=== PATIENT | male | born 1960 | race Two or more races ===

== ENCOUNTER 2018-08-27 14:28 | Inpatient (IN) | payer MEDICAID ==
[~2018-08-27] VITALS: Ht 167.6 cm; Wt 69.4 kg
[2018-08-27 14:45] VITALS: BP 145/97
--- NOTE | 2018-08-27 14:49 | NUR ---
PT WHEEL CHAIR ASSISTED BACK TO THE LOBBY BY HIS NURSE EXAMINER
--- NOTE | 2018-08-27 15:03 | NUR ---
PT NOTED WHEELING HIMSELF IN THE LOBBY WITHOUT DIFFICULTY OR ACUTE DISTRESS
--- NOTE | 2018-08-27 15:15 | NUR ---
BIB CAREGIVER WITH C/O PERSISTENT COUGH AND SOB X 1 WEEK. PER CAREGIVER, PT ON 4TH DOSE OX ZPAK FOR URI BUT SYMPTOMS ARE PERSISTENT. DENIES FEVER/CHILLS. LUNGS CTAB, RESPIRATIONS EVEN AND UNLABORED. DENIES N/V/D. PT ARRIVED ON WHEELCHAIR. REPORTS HISTORY OF PSYCHOSIS, CEREBRAL PALSY
--- NOTE | 2018-08-27 15:15 | NUR ---
PT TO ER BED 4
[2018-08-27] MEDS ORDERED: NACL 0.9% 1,000 ML IV SCH (15:58)
--- NOTE | 2018-08-27 16:02 | NUR ---
XRAY AT BEDSIDE
--- NOTE | 2018-08-27 16:08 | NUR ---
RT AT BEDSIDE
[2018-08-27 16:30] LABS: BASOPHILS # (AUTO) 0.1 K/uL (0.00-0.22); BASOPHILS % (AUTO) 1.1 % (0.0-2.0); EOSINOPHILS # (AUTO) 0.2 K/uL (0-0.4); EOSINOPHILS % (AUTO) 2.7 % (0.0-4.0); HEMOGLOBIN 13.5 g/dL (12.0-18.0); LYMPHOCYTES # (AUTO) 2.3 K/uL (2.0-11.5); MEAN CORPUSCULAR HEMOGLOBIN 33 pg (27-31); MEAN CORPUSCULAR HGB CONC 34 g/dL (33-37); MEAN CORPUSCULAR VOLUME 96.9 fL (80-94); MONOCYTES # (AUTO) 0.8 K/uL (0.8-1.0); NEUTROPHILS % (AUTO) 48.2 % (42.2-75.2); PLATELET COUNT (AUTO) 272 K/uL (140-450); RED BLOOD CELL COUNT(AUTO) 4.13 MIL/uL (4.20-6.10); RED CELL DISTRIBUTION WIDTH 13.3 % (11.6-13.7); WHITE BLOOD COUNT (AUTO) 6.3 K/uL (4.8-10.8)
--- NOTE | 2018-08-27 16:32 | NUR ---
IN AND OUT CATH PER MD ORDERS, OBTAINSED CLEAR YELLOW URINE. SENT TO LAB. PT RITIKA PROCEDURE
[2018-08-27 16:47] LABS: ANION GAP 12.8 (8-16); CARBON DIOXIDE 29.3 mmol/L (21-32); CREATININE 0.7 mg/dL (0.7-1.3); POTASSIUM 4.1 mmol/L (3.5-5.1)
[2018-08-27 16:52] LABS: ALBUMIN 3.2 g/dL (3.4-5.0); TOTAL BILIRUBIN 0.3 mg/dL (0.0-1.0)
[2018-08-27] MEDS ORDERED: AZITHROMYCIN 500 MG in DEXTROSE 5% 250 ML IV ONE (16:55)
[2018-08-27] MEDS ORDERED: AZITHROMYCIN 500 MG in DEXTROSE 5% 250 ML IV SCH (17:00)
[2018-08-27 17:04] LABS: APPEARANCE,URINE CLEAR (CLEAR); BILIRUBIN,URINE NEGATIVE (NEGATIVE); BLOOD, URINE 3+ (NEGATIVE); COLOR,URINE YELLOW (YELLOW); LEUKOCYTE ESTERASE ,URINE NEGATIVE (NEGATIVE); NITRITE, URINE NEGATIVE (NEGATIVE); PH,URINE 7.5 (5.0-9.0); UGLUCOSE NEGATIVE (NEGATIVE)
[2018-08-27] MEDS ORDERED: cefTRIAXone 1,000 MG VIAL ONE ×2 (17:16→20:43)
[2018-08-27] MEDS ORDERED: AZITHROMYCIN 500 MG INJ VIAL IV ONE (17:17)
[2018-08-27 17:22] LABS: RBC,URINE 11-20 (MOD) /HPF (0-5); WBC,URINE 0-5 /HPF (0-5)
--- NOTE | 2018-08-27 17:40 | NUR ---
Patient will be admitted to care of [facility]. Admited to MS. Will go to room 119A. Belongings list completed. Report to ZAFAR HALL.
--- NOTE | 2018-08-27 17:45 | NUR ---
RECEIVED REPORT FROM ER NURSE AT BEDSIDE. PT CC SOB, COUGHING GFOR 1 WK . HAS THE DX OF HYPOXEMIA AND POSSIBLE PNA. PT IS DEVELOPMENTALLY DELAYED, HAS THE CAREGIVER AT THE BEDSIDE. VS RECORDED T 978.2, O2 SAT 98%V ON RA. BP 154/90, HR 70 AND RR 18. STARTED AZITHROMYCIN ON PT. IVF STARTED. NO SIGN OF DISTRESS NOTED. BED ALARM ON . ALL SAFETY MEASURE IN PLACE. WILL CONTINUE TO MONITOR PT.
[2018-08-27] MEDS ORDERED: BISA5ECT43 RC (17:49)
[2018-08-27] MEDS ORDERED: [UNRECOGNIZED DRUG - OTHER] PO (17:49)
[2018-08-27] MEDS ORDERED: LORA10TA19 PO (17:49)
[2018-08-27] MEDS ORDERED: CARB15DR52 OT (17:49)
[2018-08-27] MEDS ORDERED: [UNRECOGNIZED DRUG - CODE] PO (17:49)
[2018-08-27] MEDS ORDERED: RISP0.251 PO (17:49)
[2018-08-27] MEDS ORDERED: MAGN400S60 PO (17:49)
[2018-08-27] MEDS ORDERED: CHLO1TAB42 PO (17:49)
[2018-08-27] MEDS ORDERED: ACETAMINOPHEN PO (17:49)
[2018-08-27] MEDS ORDERED: POLY15SO48 OP (17:49)
[2018-08-27] MEDS ORDERED: DOCU-299 PO (17:49)
[2018-08-27] MEDS ORDERED: [UNRECOGNIZED DRUG - OTHER] TOP (17:49)
[2018-08-27] MEDS ORDERED: NA P133N1 RC (17:49)
[2018-08-27] MEDS ORDERED: ACETAMINOPHEN 325 MG TAB PO PRN (17:55)
[2018-08-27] MEDS ORDERED: ONDANSETRON 4 MG/2 ML VIAL IM/IVP PRN (17:55)
[2018-08-27] MEDS ORDERED: MORPHINE SULFATE 2 MG/ML SYR IVP PRN (17:55)
[2018-08-27] MEDS: NACL 0.9% 1,000 ML IV SCH (18:19)
[2018-08-27 18:39] LABS: MAGNESIUM 2.1 mg/dL (1.8-2.4); PHOSPHORUS 3.7 mg/dL (2.5-4.9); THYROID STIMULATING HORMONE 1.41 uIU/mL (0.34-3.74)
--- NOTE | 2018-08-27 19:15 | NUR ---
ENDORSED PT TO PM NURSE AT BEDSIDE. PT IN STABLE CONDITION.
--- NOTE | 2018-08-27 19:16 | NUR ---
RECEIVED REPORT FROM DAY SHIFT NURSE SITAL-RN AT BEDSIDE. CAREGIVER AT BEDSIDE. PT AOX1- NON-VERBAL, ON ROOM AIR WITH LEFT AC #18G. CONTRACTURES BLE, ABRASION ON BRIDGE OF NOSE AND SCALP. DISCUSSED PLAN OF CARE WITH CAREGIVER AND VERBALIZED UNDERSTANDING. MRSA NASAL SWAB COLLECTED BY DAY SHIFT NURSE SITAL-RN. NO S/S OF RESPIRATORY DISTRESS OR DISCOMFORT NOTED AT THIS TIME. BED IN LOWEST POSITION, BED BREAKS ON, BOTH SIDE RAILS UP AND BOTH FALL AND ASPIRATION PRECAUTIONS ARE IN PLACE. BED SIDE TABLE AND CALL LIGHT ARE WITHIN REACH. WILL CONTINUE TO MONITOR.
[2018-08-27] MEDS ORDERED: guaiFENesin 20 MG/ML UDC PO PRN (19:25)
[2018-08-27] MEDS ORDERED: BISACODYL 10 MG SUPP RC PRN (19:25)
[2018-08-27] MEDS ORDERED: SODIUM PHOSPHATE 118 ML ENEM RC PRN (19:25)
[2018-08-27] MEDS ORDERED: MAGNESIUM HYDROXIDE 2400 MG/30 ML UDC PO PRN (19:25)
[2018-08-27 20:00] VITALS: BP 151/93
--- NOTE | 2018-08-27 20:00 | NUR ---
VITAL SIGNS TAKEN AND TOLERATED WELL. NO S/S OF RESPIRATORY DISTRESS OR DISCOMFORT NOTED AT THIS TIME. WILL CONTINUE TO MONITOR.
[2018-08-27] MEDS ORDERED: CARBAMIDE PEROXIDE OT SCH (21:00)
[2018-08-27] MEDS ORDERED: POLYVINYL ALCOHOL 1.4% OP 15 ML SOL OP SCH (21:00)
[2018-08-27] MEDS: DOCUSATE SODIUM 250 MG GELCAP PO SCH (21:07)
[2018-08-27] MEDS: risperiDONE 1 MG TAB PO SCH (21:08)
--- NOTE | 2018-08-27 21:08 | NUR ---
VITAL SIGNS TAKEN AND TOLERATED WELL. NO S/S OF RESPIRATORY DISTRESS OR DISCOMFORT NOTED AT THIS TIME. WILL CONTINUE TO MONITOR.
--- NOTE | 2018-08-27 23:00 | NUR ---
PT RESTING IN BED. NO S/S OF RESPIRATORY DISTRESS OR DISCOMFORT NOTED AT THIS TIME. WILL CONTINUE TO MONITOR.
[2018-08-28] VITALS: BP 152/90
--- NOTE | 2018-08-28 | NUR ---
VITAL SIGNS TAKEN AND TOLERATED WELL. NO S/S OF RESPIRATORY DISTRESS OR DISCOMFORT NOTED AT THIS TIME. WILL CONTINUE TO MONITOR.
--- NOTE | 2018-08-28 02:00 | NUR ---
PT SLEEPING IN BED. NO S/S OF RESPIRATORY DISTRESS OR DISCOMFORT NOTED AT THIS TIME. WILL CONTINUE TO MONITOR.
--- NOTE | 2018-08-28 04:00 | NUR ---
PT RESTING IN BED. NO S/S OF RESPIRATORY DISTRESS OR DISCOMFORT NOTED AT THIS TIME. WILL CONTINUE TO MONITOR.
--- NOTE | 2018-08-28 04:19 | NUR ---
PT LEFT UNIT FOR CT SCAN. NO S/S OF RESPIRATORY DISTRESS OR DISCOMFORT NOTED AT THIS TIME. WILL CONTINUE TO MONITOR.
[2018-08-28] MEDS ORDERED: LORazepam 2 MG/ML VIAL IVP SCH (04:45)
--- NOTE | 2018-08-28 06:00 | NUR ---
PT RESTING IN BED. NO S/S OF RESPIRATORY DISTRESS OR DISCOMFORT NOTED AT THIS TIME. WILL CONTINUE TO MONITOR.
[2018-08-28 06:21] LABS: BASOPHILS # (AUTO) 0.1 K/uL (0.00-0.22); BASOPHILS % (AUTO) 1.1 % (0.0-2.0); EOSINOPHILS # (AUTO) 0.1 K/uL (0-0.4); EOSINOPHILS % (AUTO) 0.8 % (0.0-4.0); HEMATOCRIT 41.1 % (36-52); HEMOGLOBIN 14.1 g/dL (12.0-18.0); LYMPHOCYTES # (AUTO) 1.4 K/uL (2.0-11.5); LYMPHOCYTES % (AUTO) 18.1 % (20.5-51.1); MEAN CORPUSCULAR HEMOGLOBIN 33 pg (27-31); MEAN CORPUSCULAR HGB CONC 34 g/dL (33-37); MEAN CORPUSCULAR VOLUME 96.2 fL (80-94); MONOCYTES # (AUTO) 0.5 K/uL (0.8-1.0); NEUTROPHILS # (AUTO) 5.5 K/uL (1.8-7.7); PLATELET COUNT (AUTO) 284 K/uL (140-450); RED BLOOD CELL COUNT(AUTO) 4.27 MIL/uL (4.20-6.10); RED CELL DISTRIBUTION WIDTH 13.1 % (11.6-13.7); WHITE BLOOD COUNT (AUTO) 7.6 K/uL (4.8-10.8)
[2018-08-28 06:31] LABS: ANION GAP 12.8 (8-16); CREATININE 0.7 mg/dL (0.7-1.3); POTASSIUM 3.8 mmol/L (3.5-5.1)
[2018-08-28 06:47] LABS: CHOL/HDL RATIO 2.8 (1-4.5)
--- NOTE | 2018-08-28 07:20 | NUR ---
RECEIVED PT REPORT FROM ART SPECIALIST NURSE AT BEDSIDE. PT IS AWAKE LYING IN BED, SHEETS OFF, AND LEGS CONTRACTED UP TO THE CHEST. PER NIGHT NURSE, PT DOES NOT LIKE TO BE COVERED AND ALWAYS REMOVES HIS SHEETS. PT IS A&O X 0, AND NONVERBAL. INCONTINENT OF BOTH. PT IS ON ROOM AIR, SKIN INTACT. IV SITE NOTED ON THE LAC, 18 G, INFUSING NS 60 ML/HR. SMALL ABRASION NOTED ON THE PT'S NOSE FROM HIS FALL FROM WHEELCHAIR ON . FALL PRECAUTIONS IN PLACE, CALL LIGHT IS WITHIN REACH. WILL CONTINUE TO MONITOR.
--- NOTE | 2018-08-28 07:29 | NUR ---
ENDORSED PT CARE TO DAY SHIFT NURSE RONA FOR CONTINUITY OF CARE.
--- NOTE | 2018-08-28 07:59 | NUR ---
PT CLEANED, CHANGED AND REPOSITIONED IN BED.
[2018-08-28 08:00] VITALS: BP 130/81
--- NOTE | 2018-08-28 08:17 | NUR ---
PATIENT HAS BEEN SCREENED AND CATEGORIZED MODERATE NUTRITION RISK. PATIENT WILL BE SEEN WITHIN 3-5 DAYS OF ADMISSION. 08/29/18[address]
[2018-08-28] MEDS ORDERED: DOCUSATE SODIUM 100 MG GELCAP PO SCH (09:00)
[2018-08-28] MEDS: POLYVINYL ALCOHOL 1.4% OP 15 ML SOL OP SCH ×4 (10:03→21:47)
[2018-08-28] MEDS: DOCUSATE SODIUM 250 MG GELCAP PO SCH ×2 (10:04→21:48)
[2018-08-28] MEDS: LISINOPRIL 5 MG TAB PO SCH (10:04)
[2018-08-28] MEDS: LORATADINE 10 MG TAB PO SCH (10:04)
[2018-08-28] MEDS: risperiDONE 1 MG TAB PO SCH ×2 (10:05→21:48)
--- NOTE | 2018-08-28 10:16 | NUR ---
SCHEDULED AM MEDICINE ADMINISTERED WITH APPLE SAUCE, PT TOLERATED WELL. Addendum: 08/28/18 at 1023 by Shelley Perera RN PT KEEPS TAKING OFF HIS GOWN AND SHEETS
[2018-08-28] MEDS: NACL 0.9% 1,000 ML IV SCH (11:12)
--- NOTE | 2018-08-28 12:06 | NUR ---
PT'S IV SITE REINFORCED WITH TAPE AND GAUZE, PT PULLS ON HIS IV LINE. IV IS PATENT AND INTACT.
--- NOTE | 2018-08-28 12:18 | NUR ---
PT EATING LUNCH WITH ASSISTANCE FROM ROASTER OPERATOR.
[2018-08-28 15:55] VITALS: BP 132/74
--- NOTE | 2018-08-28 19:15 | NUR ---
Received endorsement from AM shift RN; patient laying in bed, awake. Patient A/Ox4, ambulatory, speaks Laoatian. No SOB or distress noted, on room air. IV site on right arm, 18 gauge, intact, running IVF. Skin intact. Bed in the lowest position, call light within reach. Initial assessment done. Will continue to monitor. Addendum: 08/28/18 at 1919 by Shay Mcgregor RN Addendum - charted on wrong patient.
--- NOTE | 2018-08-28 19:16 | NUR ---
Received endorsement from AM shift RN; patient is A/Ox0, unable to make needs known, bedbound and contracted lower extremities. No SOB or distress noted, on room air. IV site on left antecubital, 18 gauge, intact and wrapped in kerlix, IVF infusing. Skin intact. Bed in the lowest position, call light within reach. Initial assessment done. Will continue to monitor.
--- NOTE | 2018-08-28 19:25 | NUR ---
PT ENDORSED TO STUDENT SERVICES REPRESENTATIVE IN STABLE CONDITION.
--- NOTE | 2018-08-28 21:50 | NUR ---
Due meds given; given with apple sauce. No distress noted.
--- NOTE | 2018-08-28 22:15 | NUR ---
Patient cleaned, linens and chux changed, repositioned, tolerated well. No distress noted.
--- NOTE | 2018-08-28 22:20 | NUR ---
Patient removed gown and blanket. Re-applied, patient began to remove gown and blanket again. Will continue to monitor.
--- NOTE | 2018-08-28 23:57 | NUR ---
Vitals taken, patient is awake, laying in bed. No distress noted.
[2018-08-29] VITALS: BP 144/84
[2018-08-29] MEDS ORDERED: LORazepam 2 MG/ML VIAL IVP SCH (01:30)
--- NOTE | 2018-08-29 01:45 | NUR ---
Frequent checks made. Patient awake, no distress noted.
--- NOTE | 2018-08-29 01:52 | NUR ---
Made Dr. Winters aware patient is restless; orders made and carried out. Will continue to monitor.
[2018-08-29] MEDS: NACL 0.9% 1,000 ML IV SCH (02:14)
--- NOTE | 2018-08-29 02:18 | NUR ---
IVF replenished. No distress noted.
--- NOTE | 2018-08-29 04:16 | NUR ---
Rounds done. Patient asleep, visible chest rise and fall noted.
--- NOTE | 2018-08-29 05:30 | NUR ---
Patient is awake, sitting on bed. No distress noted.
--- NOTE | 2018-08-29 07:10 | NUR ---
Endorsed patient to AM shift RN; patient in stable condition.
--- NOTE | 2018-08-29 07:20 | NUR ---
RECEIVED PT REPORT FROM CELL INSPECTOR NURSE, PT IS AWAKE SITTING UP IN BED, NO S/S OF ACUTE DISTRESS OR SOB. PT ON ROOM AIR. IV ON THE LAC 18 GAUGE PATENT AND INTACT, INFUSING NS 60 ML/HR. PT STILL REMOVING HIS GOWN AND SHEETS. CALL LIGHT IS WITHIN REACH, CALL PRECAUTIONS IN PLACE. WILL CONTINUE TO MONITOR.
[2018-08-29 07:48] LABS: BASOPHILS # (AUTO) 0.1 K/uL (0.00-0.22); BASOPHILS % (AUTO) 1.2 % (0.0-2.0); EOSINOPHILS # (AUTO) 0.1 K/uL (0-0.4); EOSINOPHILS % (AUTO) 1.5 % (0.0-4.0); HEMATOCRIT 41.8 % (36-52); HEMOGLOBIN 14.3 g/dL (12.0-18.0); LYMPHOCYTES # (AUTO) 1.6 K/uL (2.0-11.5); LYMPHOCYTES % (AUTO) 27.7 % (20.5-51.1); MEAN CORPUSCULAR HEMOGLOBIN 33 pg (27-31); MEAN CORPUSCULAR HGB CONC 34 g/dL (33-37); MEAN CORPUSCULAR VOLUME 96.6 fL (80-94); MONOCYTES # (AUTO) 0.6 K/uL (0.8-1.0); NEUTROPHILS # (AUTO) 3.3 K/uL (1.8-7.7); NEUTROPHILS % (AUTO) 58.6 % (42.2-75.2); PLATELET COUNT (AUTO) 288 K/uL (140-450); RED BLOOD CELL COUNT(AUTO) 4.33 MIL/uL (4.20-6.10); RED CELL DISTRIBUTION WIDTH 13.2 % (11.6-13.7); WHITE BLOOD COUNT (AUTO) 5.7 K/uL (4.8-10.8)
[2018-08-29 07:55] LABS: ANION GAP 12.6 (8-16); CARBON DIOXIDE 27.1 mmol/L (21-32); CREATININE 0.7 mg/dL (0.7-1.3); POTASSIUM 3.7 mmol/L (3.5-5.1)
[2018-08-29 08:00] VITALS: BP 134/90
[2018-08-29] MEDS: LORATADINE 10 MG TAB PO SCH (09:47)
[2018-08-29] MEDS: LISINOPRIL 5 MG TAB PO SCH (09:47)
[2018-08-29] MEDS: DOCUSATE SODIUM 250 MG GELCAP PO SCH (09:47)
[2018-08-29] MEDS: risperiDONE 1 MG TAB PO SCH (09:47)
[2018-08-29] MEDS: POLYVINYL ALCOHOL 1.4% OP 15 ML SOL OP SCH (09:48)
[2018-08-29] MEDS ORDERED: LISI-424 PO (12:21)
--- NOTE | 2018-08-29 12:35 | NUR ---
CALLED FACILITY DIRECTOR AFTAB TO INFORM OF DISCHARGE, SHE WILL COME BAR PORTER PATIENT IN ABOUT 30MIN.
--- NOTE | 2018-08-29 13:05 | NUR ---
PT ASSISTED WITH CHANGING CLOTHES, ASSISTED UP TO WHEELCHAIR, PT AWAKE ALERT, RESP EVEN UNLABORED, NO ACUTE DISTRESS NOTED, AWAITING B/C FACILITY TO PICK HIM UP.
--- NOTE | 2018-08-29 13:25 | NUR ---
DICHARGE INSTRUCTIONS AND RX INFO GIVEN AND EXPLAINED TO PT'S B/C FACILITY DIRECTOR LATHA UGALDE DC AT THIS TIME IN WHEELCHAIR.
== END 2018-08-29 13:30 | disposition home or self-care (01) | DRG 113 ==
LOC: MED 14:28 → MTU 17:03
PROVIDERS: ADMIT General Practice; ATTEND General Practice
DX: J06.9 Acute upper respiratory infection, unspecified (principal); J18.9 Pneumonia, unspecified organism; S09.90XA Unspecified injury of head, initial encounter; E44.1 Mild protein-calorie malnutrition; G80.9 Cerebral palsy, unspecified; R06.03 Acute respiratory distress; Z68.24 Body mass index [BMI] 24.0-24.9, adult; R31.9 Hematuria, unspecified; W18.39XA Other fall on same level, initial encounter; Y93.89 Activity, other specified; Y92.89 Other specified places as the place of occurrence of the external cause; Y99.8 Other external cause status; K59.09 Other constipation; F29 Unspecified psychosis not due to a substance or known physiological condition; R09.02 Hypoxemia; S00.93XA Contusion of unspecified part of head, initial encounter
CPT/HCPCS: 36415; 36600; 70450; 71045; 80048; 80053; 81001; 82803; 83036; 83605; 83690; 83735; 83880; 84100; 84443; 84484; 85025; 85610; 85730; 87040; 87081; 87086; 87804; 93005; 96361; 96365; 99285; C1758; J0456; J0696; J1644; J2060; J7030; J7060; Q0092

== ENCOUNTER 2019-01-20 12:14 | Emergency (ER) | payer MEDICAID ==
[~2019-01-20] VITALS: Ht 162.6 cm; Wt 68.0 kg
[~2019-01-20 12:14] MED LIST: ACETAMINOPHEN PO; BISA5ECT43 RC; CARB15DR52 OT; CHLO1TAB42 PO; DOCU-299 PO; LISI-424 PO; LORA10TA19 PO; MAGN400S60 PO; NA P133N1 RC; POLY15SO48 OP; RISP0.251 PO; [UNRECOGNIZED DRUG - CODE] PO; [UNRECOGNIZED DRUG - OTHER] PO; [UNRECOGNIZED DRUG - OTHER] TOP
[2019-01-20 12:30] VITALS: BP 128/81
--- NOTE | 2019-01-20 12:34 | NUR ---
PT WHEELED OUT TO LOBBY, ALIZAS.
--- NOTE | 2019-01-20 13:16 | NUR ---
PT WHEELED TO BED 11 AT THIS TIME.
--- NOTE | 2019-01-20 13:32 | NUR ---
PT BROUGHT IN BY CAREGIVER FOR FATIGUE AND NOT EATING SINCE YESTERDAY MORNING. THIS IS UNCOMMON FOR HIM. PT AWAKE AT NORMAL BASELINE PER CAREGIVER. NO N/V/D. TAKING IN LIQUIDS. ABDOMEN ROUND, SOFT, ACTIVE BOWEL SOUNDS X4. SKIN IS WARM, DRY, PINK. MEDHX: ID, CEREBRAL PALSY, ATYPICAL PSYCHOSIS, ANEMIA, ACNE, CONSTIPATION, RECURRING OTITIS MEDIA, LEFT CRYPT-ORCHIDISM, HEPATITIS
--- NOTE | 2019-01-20 13:32 | NUR ---
Note jn in EDM - 01/20/19 at 1502 by [email or web address] PT C/O FATIGUE AND NOT EATING SINCE YESTERDAY MORNING. THIS IS UNCOMMON FOR HIM. NO N/V/D. TAKING IN LIQUIDS. MEDHX: ID, CEREBRAL PALSY, ATYPICAL PSYCHOSIS, ANEMIA, ACNE, CONSTIPATION, RECURRING OTITIS MEDIA, LEFT CRYPT-ORCHIDISM, HEPATITIS
[2019-01-20] MEDS ORDERED: MIRABULK PO (13:39)
[2019-01-20] MEDS ORDERED: BISA5ECT43 RC (13:39)
--- NOTE | 2019-01-20 13:44 | NUR ---
DR JOHNSON AT BEDSIDE EVALUATING PT.
[2019-01-20] MEDS ORDERED: NACL 0.9% 1,000 ML IV ONE (14:02)
[2019-01-20 14:46] LABS: BASOPHILS # (AUTO) 0.1 K/uL (0.00-0.22); BASOPHILS % (AUTO) 0.5 % (0.0-2.0); EOSINOPHILS # (AUTO) 0.1 K/uL (0-0.4); EOSINOPHILS % (AUTO) 0.6 % (0.0-4.0); HEMATOCRIT 41.5 % (36-52); HEMOGLOBIN 14.3 g/dL (12.0-18.0); LYMPHOCYTES # (AUTO) 1.8 K/uL (2.0-11.5); LYMPHOCYTES % (AUTO) 17.6 % (20.5-51.1); MEAN CORPUSCULAR HEMOGLOBIN 33 pg (27-31); MEAN CORPUSCULAR HGB CONC 34 g/dL (33-37); MEAN CORPUSCULAR VOLUME 95.9 fL (80-94); MONOCYTES # (AUTO) 1.1 K/uL (0.8-1.0); MONOCYTES % (AUTO) 11.4 % (1.7-9.3); NEUTROPHILS % (AUTO) 69.9 % (42.2-75.2); PLATELET COUNT (AUTO) 262 K/uL (140-450); RED BLOOD CELL COUNT(AUTO) 4.33 MIL/uL (4.20-6.10); RED CELL DISTRIBUTION WIDTH 13.3 % (11.6-13.7)
--- NOTE | 2019-01-20 14:55 | NUR ---
PT WAS STRAIGHT CATHED WITH A 14 GHANAIAN 200CC YELLOW CLEAR URINE. SAMPLE COLLECTED AND SENT TO LAB. PT POSITIONED TO COMFORT
[2019-01-20 15:08] LABS: CARBON DIOXIDE 30.6 mmol/L (21-32); CREATININE 0.7 mg/dL (0.7-1.3); POTASSIUM 3.6 mmol/L (3.5-5.1)
[2019-01-20 15:09] LABS: PROTHROMBIN TIME 10.3 secs (10.8-13.4)
[2019-01-20 15:20] LABS: APPEARANCE,URINE CLEAR (CLEAR); BILIRUBIN,URINE NEGATIVE (NEGATIVE); BLOOD, URINE NEGATIVE (NEGATIVE); COLOR,URINE YELLOW (YELLOW); LEUKOCYTE ESTERASE ,URINE NEGATIVE (NEGATIVE); NITRITE, URINE NEGATIVE (NEGATIVE); UGLUCOSE NEGATIVE (NEGATIVE)
[2019-01-20 15:21] LABS: ALBUMIN 3.7 g/dL (3.4-5.0); TOTAL BILIRUBIN 0.9 mg/dL (0.0-1.0)
--- NOTE | 2019-01-20 16:06 | NUR ---
PT TOLERATED ORAL FLUIDS. PO CHALLENGE COMPLETED
--- NOTE | 2019-01-20 16:21 | NUR ---
PT HAD IV REMOVED WITH NO BLEEDING. HIS DIAPER WAS CHANGED AND HE WAS PLACED BACK IN WHEELCHAIR.
--- NOTE | 2019-01-20 16:22 | NUR ---
Patient discharged with v/s stable. Written and verbal after care instructions given and explained. Patient verbalized understanding. Wheel Chair Assisted with by caregiver. All questions addressed prior to discharge. Advised to follow up with PMD.
[2019-01-20 16:24] VITALS: BP 155/76
== END 2019-01-20 16:22 | disposition home or self-care (01) ==
LOC: MED 12:14
DX: R63.0 Anorexia (principal); Z79.899 Other long term (current) drug therapy
CPT/HCPCS: 36415; 71045; 80053; 81003; 83605; 83690; 83880; 84484; 85025; 85610; 87040; 87086; 93005; 99284; J7030; Q0092

== ENCOUNTER 2019-03-17 06:08 | Inpatient (IN) | payer MEDICAID ==
[~2019-03-17] VITALS: Ht 165.1 cm; Wt 67.1 kg
[~2019-03-17 06:08] MED LIST changes: +BISA-188 RC; -BISA5ECT43 RC; -CHLO1TAB42 PO; +MIRABULK PO
--- NOTE | 2019-03-17 06:08 | NUR ---
PT TOMA ALS. TAKEN TO BED 10
[2019-03-17] MEDS ORDERED: NACL 0.9% 500 ML IV SCH (06:09)
[2019-03-17 06:13] VITALS: BP 131/84
--- NOTE | 2019-03-17 06:15 | NUR ---
Dr. Silverio examining patient.
--- NOTE | 2019-03-17 06:15 | NUR ---
Respiratory Therapist at bedside
--- NOTE | 2019-03-17 06:20 | NUR ---
EKG PERFORMED AT BEDSIDE
--- NOTE | 2019-03-17 06:46 | NUR ---
X-Ray at bedside.
--- NOTE | 2019-03-17 06:46 | NUR ---
58 Y/O MALE BIB AMBULANCE. PRESENTS TO ED WITH CHIEF COMPLAINT OF DIFFICULTY BREATHING. [employer]OM[employer]ION[employer] SALES STATES, PT WAS HAVING DIFFICULTY BREATHING AT SNF. PT RECEIVED BREATHING TX ENROUTE. PT HAS AUDIBLE WHEEZING UPPER LOBES. PLACED ON 2L OXYGEN; SPO2 AT 98%. NO CHEST PAIN NOTED. HX OF CEREBRAL PALSY. ABLE TO FOLLOW SIMPLE COMMANDS; NONVERBAL. ERMD SEEN. WILL CONTINUE TO MONITOR.
[2019-03-17 06:47] LABS: BASOPHILS % (AUTO) 0.3 % (0.0-2.0); HEMATOCRIT 42.3 % (36-52); HEMOGLOBIN 14.4 g/dL (12.0-18.0); LYMPHOCYTES # (AUTO) 0.6 K/uL (2.0-11.5); LYMPHOCYTES % (AUTO) 5.1 % (20.5-51.1); MEAN CORPUSCULAR HEMOGLOBIN 33 pg (27-31); MEAN CORPUSCULAR HGB CONC 34 g/dL (33-37); MEAN CORPUSCULAR VOLUME 97.8 fL (80-94); MONOCYTES # (AUTO) 0.8 K/uL (0.8-1.0); MONOCYTES % (AUTO) 6.3 % (1.7-9.3); NEUTROPHILS # (AUTO) 10.8 K/uL (1.8-7.7); NEUTROPHILS % (AUTO) 88.3 % (42.2-75.2); PLATELET COUNT (AUTO) 237 K/uL (140-450); RED BLOOD CELL COUNT(AUTO) 4.32 MIL/uL (4.20-6.10); RED CELL DISTRIBUTION WIDTH 13.4 % (11.6-13.7); WHITE BLOOD COUNT (AUTO) 12.3 K/uL (4.8-10.8)
--- NOTE | 2019-03-17 06:51 | NUR ---
ARMORING MACHINE OPERATOR AT BEDSIDE
[2019-03-17 06:59] LABS: ANION GAP 11.9 (8-16); CARBON DIOXIDE 26.9 mmol/L (21-32); CREATININE 0.7 mg/dL (0.7-1.3); POTASSIUM 3.8 mmol/L (3.5-5.1)
--- NOTE | 2019-03-17 07:00 | NUR ---
STRAIGHT CATH PERFORMED USING STERILE TECHNIQUE, 100 CC DARK YELLOW CLEAR URINE NOTED, SAMPLE COLLECTED AND SENT TO LAB.
[2019-03-17 07:06] LABS: ALBUMIN 3.3 g/dL (3.4-5.0); TOTAL BILIRUBIN 7.4 mg/dL (0.0-1.0)
--- NOTE | 2019-03-17 07:12 | NUR ---
REPORT RECEIVED FROM LATHA VALLES RESTING IN BED WITH RESPRESENTATIVE FROM [facility] AT BEDSIDE
[2019-03-17] MEDS ORDERED: PIPERACILLIN/TAZOBACTAM 3.375 GM in DEXTROSE 5% 50 ML IV ONE (07:15)
[2019-03-17] MEDS ORDERED: VANCOMYCIN 1,000 MG in DEXTROSE 5% 250 ML IV ONE (07:15)
[2019-03-17] MEDS ORDERED: PIPERACILLIN/TAZOBACTAM 3.375 GM VIAL IV ONE ×2 (07:17→21:13)
[2019-03-17] MEDS ORDERED: VANCOMYCIN 1,000 MG VIAL ONE (07:17)
--- NOTE | 2019-03-17 07:22 | NUR ---
DR DELGADO AT BEDSIDE
[2019-03-17 07:28] LABS: PROTHROMBIN TIME 10.8 secs (10.8-13.4)
[2019-03-17] MEDS ORDERED: NACL 0.9% 1,000 ML IV ONE (07:30)
--- NOTE | 2019-03-17 07:42 | NUR ---
URINE WALKED OVER TO LAB
[2019-03-17 07:54] LABS: APPEARANCE,URINE CLOUDY (CLEAR); BILIRUBIN,URINE 3+ (NEGATIVE); BLOOD, URINE 3+ (NEGATIVE); COLOR,URINE BROWN (YELLOW); LEUKOCYTE ESTERASE ,URINE NEGATIVE (NEGATIVE); NITRITE, URINE NEGATIVE (NEGATIVE); UGLUCOSE NEGATIVE (NEGATIVE)
--- NOTE | 2019-03-17 07:58 | NUR ---
LAB AT BEDSIDE.
[2019-03-17] MEDS ORDERED: LISI5TAB18 PO (08:03)
[2019-03-17] MEDS ORDERED: DEXT1DRO4 OP (08:10)
[2019-03-17] MEDS ORDERED: CARB15DR52 OT (08:10)
[2019-03-17] MEDS ORDERED: NA P133N16 RC (08:10)
[2019-03-17] MEDS ORDERED: [UNRECOGNIZED DRUG - CODE] PO (08:10)
--- NOTE | 2019-03-17 08:31 | NUR ---
ULTRASOUND AT BEDSIDE.
[2019-03-17 08:38] LABS: WBC,URINE 0-5 /HPF (0-5)
--- NOTE | 2019-03-17 09:36 | NUR ---
PT LAYING COMFORTABLY IN GURNEY, NO GRIMACING, NO DISTRESS NOTED. VSS.
--- NOTE | 2019-03-17 09:44 | NUR ---
RESDIENT SPEAKING TO SHIP SCALER FROM [facility] AT BEDSIDE.
[2019-03-17] MEDS: NACL 0.9% 1,000 ML IV SCH ×2 (09:56→22:26)
[2019-03-17] MEDS ORDERED: HYDROcodone/APAP 5/325 MG 1 TAB TAB PO PRN (10:00)
[2019-03-17] MEDS ORDERED: SODIUM PHOSPHATE 118 ML ENEM RC SCH ×2 (10:00→18:09)
[2019-03-17] MEDS ORDERED: MAGNESIUM HYDROXIDE 2400 MG/30 ML UDC PO PRN (10:00)
[2019-03-17] MEDS ORDERED: DOCUSATE SODIUM 100 MG GELCAP PO PRN (10:00)
[2019-03-17] MEDS ORDERED: MORPHINE SULFATE 2 MG/ML SYR IVP PRN (10:00)
[2019-03-17] MEDS ORDERED: ACETAMINOPHEN 325 MG TAB PO PRN (10:00)
[2019-03-17] MEDS ORDERED: ONDANSETRON 4 MG/2 ML VIAL IM/IVP PRN (10:00)
--- NOTE | 2019-03-17 10:25 | NUR ---
Patient will be admitted to care of [facility]. Admited to TELE. Will go to [facility]B. Belongings list completed. Report to ISABEL SEWELL.
--- NOTE | 2019-03-17 10:25 | NUR ---
RECEIVED REPORT FROM LAB SUPPORT SERVICE TECH. PATIENT CAME TO FLOOR ON NASAL CANNULA 2.5L, PATIENT IS FULL CODE, NKA AND NONVERBAL. PATIENT FOLLOWS COMMANDS, SKIN INTACT. IV IS PLACED AT LEFT HAND 20G. PATIENT HAS A REPLENISHMENT BUYER WHO CAME WITH HIM AND IS CURRENTLY AT BEDSIDE, PHONE NUMBER IS [phone]
[2019-03-17 11:00] LABS: BARBITURATE, URINE NEG. ng/ml (NEG <=200); BENZODIAZEPINE, URINE NEG. ng/mL (NEG <=200); CANNABINOID, URINE NEG. ng/mL (NEG <=50); COCAINE, URINE NEG. ng/mL (NEG <=300); OPIATE, URINE NEG. ng/mL (NEG <=2000); PHENCYCLIDINE SCREEN,URINE NEG. ng/mL (NEG <=25)
[2019-03-17 11:12] LABS: PHOSPHORUS 3.1 mg/dL (2.5-4.9); THYROID STIMULATING HORMONE 0.48 uIU/mL (0.34-3.74)
[2019-03-17 12:00] VITALS: BP 143/87
[2019-03-17] MEDS ORDERED: guaiFENesin 20 MG/ML UDC PO PRN (12:00)
--- NOTE | 2019-03-17 12:20 | NUR ---
PATIENT SITTING UP IN BED. CAREGIVER AT BEDSIDE. CAREGIVER ATTEMPTED TO FEED PATIENT BUT STATED PATIENT REFUSED AND HE RARELY EVER REFUSES.
[2019-03-17 16:00] VITALS: BP 140/77
--- NOTE | 2019-03-17 17:00 | NUR ---
NEW CAREGIVER FROM PATIENTS FACILITY IS AT BEDSIDE. PATIENT IS RESTING QUIETLY IN BED. NO COMPLAINTS AT THIS TIME.
--- NOTE | 2019-03-17 19:25 | NUR ---
RECIEVED PT ON BED , NO VERBAL , MENTALLY DELAYED , NID , ON O2 AT 2LPM , WITH MARKED SKIN JAUNDICE - NO SIGNS OF PAIN NOTED AT THIS TIME FLACC 0 , IV SITE INTACT AND PATENT , FALL RISK - ON SAFETY/FALL PRECAUTION PROTOCOL - BED ALARM ON . PLAN OF CARE DISCUSSED BUT POOR UNDERSTANDING DUE TO MENTAL STATUS . WILL CONT. TO MONITOR, ON NPO POST MN.
[2019-03-17 20:00] VITALS: BP 133/70
[2019-03-17] MEDS: PIPERACILLIN/TAZOBACTAM 3.375 GM in DEXTROSE 5% 50 ML IV SCH (21:17)
[2019-03-17] MEDS: risperiDONE 1 MG TAB PO SCH (21:18)
[2019-03-17] MEDS: DOCUSATE SODIUM 250 MG GELCAP PO SCH (21:18)
--- NOTE | 2019-03-17 22:00 | NUR ---
MADE ROUNDS . NO SIGNS OF DISTRESS NOTED AT THIS TIME . WILL CONT. TO MONITOR.
[2019-03-18] VITALS: BP 110/60
--- NOTE | 2019-03-18 | NUR ---
MADE ROUNDS . NO SIGNS OF DISTRESS NOTED AT THIS TIME . WILL CONT. TO MONITOR.
--- NOTE | 2019-03-18 02:00 | NUR ---
MADE ROUNDS , NO SIGNS OF DISTRESS NOTED AT THIS TIME.
[2019-03-18 04:00] VITALS: BP 110/66
--- NOTE | 2019-03-18 04:00 | NUR ---
MADE ROUNDS NO SIGNS OF DISTRESS NOTED AT THIS TIME.
[2019-03-18] MEDS ORDERED: PIPERACILLIN/TAZOBACTAM 3.375 GM VIAL IV ONE (04:19)
[2019-03-18] MEDS: PIPERACILLIN/TAZOBACTAM 3.375 GM in DEXTROSE 5% 50 ML IV SCH ×2 (04:29→13:23)
[2019-03-18] MEDS: DEXT 5% / NACL 0.45% 1,000 ML IV SCH ×3 (05:45→22:30)
[2019-03-18] MEDS ORDERED: ALBUTEROL SULFATE/IPRATROPIU 3 ML SOL IH PRN (06:05)
[2019-03-18 06:28] LABS: BASOPHILS # (AUTO) 0.1 K/uL (0.00-0.22); BASOPHILS % (AUTO) 0.8 % (0.0-2.0); EOSINOPHILS # (AUTO) 0.1 K/uL (0-0.4); EOSINOPHILS % (AUTO) 1.5 % (0.0-4.0); HEMATOCRIT 38.1 % (36-52); HEMOGLOBIN 12.9 g/dL (12.0-18.0); LYMPHOCYTES # (AUTO) 1.1 K/uL (2.0-11.5); LYMPHOCYTES % (AUTO) 16.3 % (20.5-51.1); MEAN CORPUSCULAR HEMOGLOBIN 34 pg (27-31); MEAN CORPUSCULAR HGB CONC 34 g/dL (33-37); MEAN CORPUSCULAR VOLUME 98.8 fL (80-94); MONOCYTES # (AUTO) 0.7 K/uL (0.8-1.0); MONOCYTES % (AUTO) 10.8 % (1.7-9.3); NEUTROPHILS # (AUTO) 4.9 K/uL (1.8-7.7); NEUTROPHILS % (AUTO) 70.6 % (42.2-75.2); PLATELET COUNT (AUTO) 220 K/uL (140-450); RED BLOOD CELL COUNT(AUTO) 3.86 MIL/uL (4.20-6.10); RED CELL DISTRIBUTION WIDTH 13.7 % (11.6-13.7); WHITE BLOOD COUNT (AUTO) 6.9 K/uL (4.8-10.8)
[2019-03-18] MEDS ORDERED: AZITHROMYCIN 500 MG in DEXTROSE 5% 250 ML IV SCH (06:30)
[2019-03-18 06:36] LABS: CARBON DIOXIDE 26.6 mmol/L (21-32); CREATININE 0.6 mg/dL (0.7-1.3); POTASSIUM 3.6 mmol/L (3.5-5.1)
[2019-03-18] MEDS: ALBUTEROL SULFATE/IPRATROPIU 3 ML SOL IH SCH ×3 (06:41→19:45)
[2019-03-18] MEDS ORDERED: AZITHROMYCIN 500 MG INJ VIAL IV ONE (06:44)
[2019-03-18 06:59] LABS: ALBUMIN 2.9 g/dL (3.4-5.0); BILIRUBIN,DIRECT 6.7 mg/dL (0.0-0.3); CHOL/HDL RATIO 6.7 (1-4.5); PHOSPHORUS 2.2 mg/dL (2.5-4.9); TOTAL BILIRUBIN 8.3 mg/dL (0.0-1.0)
--- NOTE | 2019-03-18 07:30 | NUR ---
ENDORSED TO AM SHIFT WITH STABLE CONDITION.
--- NOTE | 2019-03-18 07:34 | NUR ---
RECEIVED REPORT FROM NIGHT RN. PT RESTING IN BED. NO S/S OF ACUTE DISTRESS. FLACC-0. PT NONVERBAL. IV SITE PATENT AND INTACT. CALL LIGHT WITHIN REACH. SAFETY MEASURES ENSURED. WILL CONTINUE TO MONITOR.
[2019-03-18 08:07] LABS: HEPATITIS A ANTIBODY IGM Negative (Negative); HEPATITIS B CORE AB TOTAL Negative (Negative); HEPATITIS B SURFACE ANTIBODY Reactive (.); HEPATITIS B SURFACE ANTIGEN Negative (Negative)
[2019-03-18] MEDS: LACTOBACILLUS RHAMNOSUS GG 1 EACH CAP PO SCH (08:16)
[2019-03-18] MEDS: DOCUSATE SODIUM 250 MG GELCAP PO SCH ×2 (08:16→22:05)
[2019-03-18] MEDS: POLYETHYLENE GLYCOL 17 GM/PKT PO SCH (08:16)
[2019-03-18] MEDS: LORATADINE 10 MG TAB PO SCH (08:16)
--- NOTE | 2019-03-18 08:27 | NUR ---
PATIENT HAS BEEN SCREENED AND CATEGORIZED HIGH NUTRITION RISK. PATIENT WILL BE SEEN WITHIN 1-2 DAYS OF ADMISSION. 03/18/[address]
[2019-03-18] MEDS: risperiDONE 1 MG TAB PO SCH ×2 (09:00→22:05)
[2019-03-18] MEDS: LISINOPRIL 20 MG TAB PO SCH (09:00)
[2019-03-18] MEDS: BISACODYL 10 MG SUPP RC SCH (09:10)
[2019-03-18] MEDS ORDERED: SODIUM PHOS / POTASSIUM PHOS 1 PKT PDR PO SCH (10:00)
--- NOTE | 2019-03-18 10:44 | NUR ---
*S.T. Note* order for S.T. bedside swallow eval received, chart reviewed. Spoke w/ ISABEL Medina, who confirmed that pt is NPO pending CT angio, but cleared clinician to give minimal amounts of P.O. trials for eval. Pt, however, non-cooperative, and refused all P.O. trials (apple sauce, juice via straw, cup and spoon, water, gelatin, crackers), pushing away or throwing P.O. trials to floor. Unable to complete eval at this time. Will reattempt tomorrow. Time [id number]
[2019-03-18 11:14] VITALS: BP 115/76
--- NOTE | 2019-03-18 12:07 | NUR ---
PT RESTING IN BED. NO S/S OF ACUTE DISTRESS. FLACC-0. IV SITE PATENT AND INTACT. CALL LIGHT WITHIN REACH. SAFETY MEASURES ENSURED. WILL CONTINUE TO MONITOR.
--- NOTE | 2019-03-18 13:54 | NUR ---
03/18/19 RD INITIAL ASSESSMENT COMPLETED PLEASE REFER TO NUTRITION ASSESSMENT UNDER CARE ACTIVITY FOR ESTIMATED NUTRITIONAL NEEDS. 1. CONTINUE NPO TOLERATED 2. ADVANCE DIET PER SWALLOW EVAL RECOMMENDATION. 3. RD TO FOLLOW-UP 2-3 DAYS, HIGH RISK TWIN VASQUEZ, RD
--- NOTE | 2019-03-18 15:05 | NUR ---
CONFIRMED WITH CT THAT THE STANDARD CONSENT FORM IS NEEDED FOR CT WITH CONTRAST. DR. JIMENEZ AWARE. ALEISHA ALSO AWARE. MESSAGE LEFT FOR JUDI FROM [facility].
--- NOTE | 2019-03-18 15:11 | NUR ---
SPOKE TO OSMAN AND KYAW REGARDING CONSENT NEEDING TO BE RESENT. PER KYAW WE WILL BE GETTING A CALL FROM [facility] FOR VERBAL CONSENT.
[2019-03-18 16:00] VITALS: BP 112/70
[2019-03-18] MEDS: LORazepam 2 MG/ML VIAL IM/IVP PRN (16:27)
--- NOTE | 2019-03-18 16:51 | NUR ---
PT RESTING IN BED. ATIVAN GIVEN FOR AGITATION, AWAITING RESPONSE. NO S/S OF ACUTE DISTRESS. FLACC-0. WILL CONTINUE TO MONITOR.
[2019-03-18] MEDS ORDERED: LORazepam 2 MG/ML VIAL IVP PRN (19:20)
--- NOTE | 2019-03-18 19:30 | NUR ---
RECEIVED BEDSIDE REPORT FROM AM SHIFT RN. PT IN BED AWAKE. PT IS NON-VERBAL, MENTALLY DELAYED. NO SIGNS OF RESPIRATORY DISTRESS OR SOB NOTED. IV ACCESS ON LEFT AC 20 GAUGE , PATENT, INTACT AND ASYMPTOMATIC INFUSING WELL. HEP LOCK ON LEFT HAND 20 GAUGE. PT ON FALL RISK BED IN LOW POSITION. PT ON CONTACT PRECAUTIONS FOR POSITIVE MRSA NARES. BOARD UPDATED. WILL CONTINUE TO MONITOR.
[2019-03-18 20:00] VITALS: BP 139/89
--- NOTE | 2019-03-18 22:00 | NUR ---
ROUNDS DONE. PT ASLEEP COMFORTABLY IN BED. NO SOB OR DISTRESS NOTED. VISIBLE CHEST RISE AND FALL NOTED. WILL CONTINUE TO MONITOR.
[2019-03-19] VITALS: BP 109/71
--- NOTE | 2019-03-19 | NUR ---
VITAL SIGNS TAKEN. PT STABLE AND ASLEEP. VISIBLE CHEST RISE AND FALL NOTED. WILL CONTINUE TO MONITOR.
--- NOTE | 2019-03-19 02:05 | NUR ---
ROUNDS DONE. PT SLEEPING COMFORTABLY. NO DISTRESS NOTED. VISIBLE CHEST RISE AND FALL NOTED. WILL CONTINUE TO MONITOR.
--- NOTE | 2019-03-19 04:05 | NUR ---
ROUNDS MADE. PT IN BED ASLEEP. NO SOB OR DISTRESS NOTED. VISIBLE CHEST RISE AND FALL NOTED. WILL CONTINUE TO MONITOR.
--- NOTE | 2019-03-19 05:00 | NUR ---
PT WENT OUT FOR CT SCAN OF ABDOMEN WITH CONTRAST VIA GURNEY.
--- NOTE | 2019-03-19 05:40 | NUR ---
PT RETURN FROM CT SCAN OF ABDOMEN VIA [facility]. PT STABLE.
[2019-03-19 06:34] LABS: ANION GAP 15.9 (8-16); CREATININE 0.5 mg/dL (0.7-1.3); POTASSIUM 3.9 mmol/L (3.5-5.1)
[2019-03-19 06:45] LABS: HEMATOCRIT 38.5 % (36-52); MEAN CORPUSCULAR HEMOGLOBIN 33 pg (27-31); MEAN CORPUSCULAR HGB CONC 34 g/dL (33-37); PLATELET COUNT (AUTO) 252 K/uL (140-450); RED BLOOD CELL COUNT(AUTO) 3.89 MIL/uL (4.20-6.10); RED CELL DISTRIBUTION WIDTH 13.9 % (11.6-13.7); WHITE BLOOD COUNT (AUTO) 6.4 K/uL (4.8-10.8)
[2019-03-19 06:47] LABS: BILIRUBIN,DIRECT 7.4 mg/dL (0.0-0.3); TOTAL BILIRUBIN 9.1 mg/dL (0.0-1.0)
[2019-03-19] MEDS: ALBUTEROL SULFATE/IPRATROPIU 3 ML SOL IH SCH ×3 (06:51→20:15)
--- NOTE | 2019-03-19 06:51 | NUR ---
PT KEEPS PULLING MASK OFF AND THROWING ON FLOOR STARTED TO BE COMBATIVE
--- NOTE | 2019-03-19 06:58 | NUR ---
PT IN STABLE CONDITION. WILL ENDORSE TO AM SHIFT NURSE FOR CONTINUITY OF CARE.
--- NOTE | 2019-03-19 07:24 | NUR ---
RECEIVED HAND OFF REPORT FROM PM RN PT APPEARS STABLE AND IN NO APPARENT DISTRESS. ALL SAFETY MEASURES ARE IN PLACE WILL CONTINUE TO MONITOR
[2019-03-19 07:25] LABS: EOSINOPHILS % (MANUAL) 2 % (0-4); MONOCYTES % (MANUAL) 12 % (5-12)
[2019-03-19 07:26] LABS: LYMPHOCYTES % (MANUAL) 23 % (20-46)
[2019-03-19 08:10] VITALS: BP 147/73
[2019-03-19] MEDS: risperiDONE 1 MG TAB PO SCH ×2 (09:00→21:00)
[2019-03-19] MEDS: LISINOPRIL 20 MG TAB PO SCH (09:00)
[2019-03-19] MEDS: POLYETHYLENE GLYCOL 17 GM/PKT PO SCH (09:00)
[2019-03-19] MEDS: LACTOBACILLUS RHAMNOSUS GG 1 EACH CAP PO SCH (09:00)
[2019-03-19] MEDS: BISACODYL 10 MG SUPP RC SCH (09:00)
[2019-03-19] MEDS: SENNA 8.6 MG TAB PO SCH (09:00)
[2019-03-19] MEDS: LORATADINE 10 MG TAB PO SCH (09:00)
[2019-03-19] MEDS: DOCUSATE SODIUM 250 MG GELCAP PO SCH ×2 (09:00→21:00)
--- NOTE | 2019-03-19 09:00 | NUR ---
RECEIVED A CALL FROM [facility] REGARDING A CONSENT FOR PT'S PROCEDURE , E MAILED THE CONSENT TO [facility] , WHICH SHE RECEIVED IT AND REFER IT TO THE COMMITTEE, ONCE IT IS DONE AND AGREED SHE WILL FAX THE CONSENT FORM BACK TO [facility]. CM TO FOLLOW
--- NOTE | 2019-03-19 09:35 | NUR ---
FREQUENT ROUNDING ON PT PT APPEARS STABLE AND IN NO APPARENT DISTRESS. ALL SAFETY MEASURES ARE IN PLACE WILL CONTINUE TO MONITOR.
--- NOTE | 2019-03-19 10:12 | NUR ---
CALLED FROM [facility] [phone] TO GET PHONE CONSENT. SHE STATED IT HAS ALREADY BEEN FAXED TO HER BY THE [employer] [employer] [employer] MANA[employer].PROVIDED OUR FAX NUMBER FOR THE PATIENT.
--- NOTE | 2019-03-19 10:33 | NUR ---
HELD MORNING MEDICATIONS PT IS TO BE KEPT NPO FOR PROCEDURE TODAY, HELD HEPARIN SUBQ PT IS SCHEDULED FOR ERCP WITH POSSIBLE LAP ANDREW TODAY
[2019-03-19] MEDS: AZITHROMYCIN 250 MG in DEXTROSE 5% 250 ML IV SCH (10:46)
[2019-03-19] MEDS: MUPIROCIN CA NASAL 2% 1GM TUBE NS SCH (10:47)
[2019-03-19] MEDS: CHLORHEXADINE GLUC 2% CLOTH TP SCH (10:47)
--- NOTE | 2019-03-19 11:04 | NUR ---
* ST PVE NOTE * Clinician attempting to complete second attempt at swallow evaluation at this time. Upon consulting with Adonay Whitfield, Adonay reporting pt to be kept NPO pending ERCP and possible lap vini. Clinician thus informing Adonay Whitfield another swallow evaluation attempt will be made tomorrow 03/20 pending pt's condition s/p procedure, w/nsg verbalizing understanding and agreement. PVE
--- NOTE | 2019-03-19 11:23 | NUR ---
FREQUENT ROUNDING ON PT PT APPEARS STABLE AND IN NO APPARENT DISTRESS. ALL SAFETY MEASURES ARE IN PLACE WILL CONTINUE TO MONITOR
--- NOTE | 2019-03-19 11:50 | NUR ---
SCREEN FOR LOW LILIAN SCALE AT RISK, CONTINUE TO FOLLOW PRESSURE ULCER PREVENTION INTERVENTIONS. -TURN AND REPOSITION PATIENT Q 2H -ASSESS AND MONITOR SKIN CONDITION DURING POSITION CHANGE -OFFLOAD BILATERAL HEELS BY PLACING PILLOWS UNDER CALVES AT ALL TIMES, UNLESS OTHERWISE CONTRAINDICATED -PRESSURE REDISTRIBUTION BY PLACING PILLOWS AND OFFLOADING SACRALCOCCYX -KEEP SKIN CLEAN AND DRY AT ALL TIMES.
--- NOTE | 2019-03-19 13:46 | NUR ---
FREQUENT ROUNDING ON PT PT APPEARS STABLE AND IN NO APPARENT DISTRESS. ALL SAFETY MEASURES ARE IN PLACE
[2019-03-19] MEDS: LORazepam 2 MG/ML VIAL IM/IVP PRN ×2 (14:19→23:21)
--- NOTE | 2019-03-19 15:00 | NUR ---
PT TAKEN OFF THE UNIT FOR HIDA SCAN
--- NOTE | 2019-03-19 15:28 | NUR ---
FREQUENT ROUNDING ON PT PT APPEARS STABLE AND IN NO APPARENT DISTRESS. ALL SAFETY MEASURES ARE IN PLACE WILL CONTINUE TO MONITOR Addendum: 03/19/19 at 1529 by Roseann Ye RN ERROR WRONG PT
[2019-03-19] MEDS ORDERED: MORPHINE SULFATE 2 MG/ML SYR IVP SCH (15:55)
--- NOTE | 2019-03-19 16:10 | NUR ---
pt still off unit for hida scan. went to nuclear medicine to administer 2mg morphine for hida scan protocol
--- NOTE | 2019-03-19 16:37 | NUR ---
RECEIVED CONSENT FROM PT FACILITY FOR ERCP AND LAP ANDREW PLACED IN CHART
--- NOTE | 2019-03-19 18:55 | NUR ---
unable to administer iv antibiotic pt is still off the unit. will endorse to pm sharan
--- NOTE | 2019-03-19 19:10 | NUR ---
RECEIVED BEDSIDE REPORT FROM DAY SHIFT NURSE. PATIENT IS OFF UNIT FOR HIDA SCAN. AWAITING FOR PATIENT ARRIVAL.
[2019-03-19] MEDS: DEXT 5% / NACL 0.45% 1,000 ML IV SCH (19:19)
--- NOTE | 2019-03-19 19:20 | NUR ---
ENDORSED PT TO PM RN PT OFF UNIT FOR HIDA SCAN.
--- NOTE | 2019-03-19 19:25 | NUR ---
PT ARRIVED BACK ON THE UNIT. ADMINISTERED 1800 IV ANTIBIOTIC. PT AWAKE IN BED PT APPEARS STABLE AND IN NO APPARENT DISTRESS. ALL SAFETY MEASURES IN PLACE. BED ALARM ON. PARTICIPANT ADMINISTRATOR AT BEDSIDE PROVIDING GLADYS CARE
--- NOTE | 2019-03-19 19:30 | NUR ---
PATIENT IS BACK ON THE UNIT. VITALS WERE TAKEN. ALL SAFETY MEASURES IN PLACE. BED IS AT LOW POSITION. CALL LIGHT WITHIN REACH. WILL CONTINUE TO MONITOR.
--- NOTE | 2019-03-19 20:00 | NUR ---
INITIAL ASSESSMENT DONE. VITALS WERE TAKEN. PATIENT IN STABLE CONDITION. NO DISTRESS NOTED. WILL CONTINUE TO MONITOR.
--- NOTE | 2019-03-19 21:00 | NUR ---
ALL SCHEDULED MEDS WERE GIVEN EXCEPT FOR PO MEDS. PATIENT STILL NPO. WILL CONTINUE TO MONITOR.
--- NOTE | 2019-03-19 22:30 | NUR ---
PATIENT PULLED HIS IV. NO ACTIVE BLEEDING NOTICE. CANNULA INTACT. INSERT NEW ONE TO THE RIGHT HAND 24G. WILL CONTINUE TO MONITOR.
--- NOTE | 2019-03-19 23:20 | NUR ---
PATIENT IS RESTLESS KEPT MOVING AROUND, KEPT PULLING IV LINE. PRN ATIVAN ADMINISTERED PER ORDER. WILL CONTINUE TO MONITOR.
[2019-03-20] VITALS: BP 146/90
--- NOTE | 2019-03-20 00:12 | NUR ---
VITALS WERE TAKEN. PATIENT IN STABLE CONDITION. NO DISTRESS NOTED. WILL CONTINUE TO MONITOR.
--- NOTE | 2019-03-20 02:24 | NUR ---
CHECKED ON PATIENT. PATIENT SLEEPING RESPIRATION EVEN UNLABORED ON ROOM AIR. NO DISTRESS NOTED. WILL CONTINUE TO MONITOR.
[2019-03-20 06:17] LABS: BASOPHILS # (AUTO) 0.1 K/uL (0.00-0.22); BASOPHILS % (AUTO) 1.2 % (0.0-2.0); EOSINOPHILS # (AUTO) 0.1 K/uL (0-0.4); EOSINOPHILS % (AUTO) 2.1 % (0.0-4.0); HEMOGLOBIN 13.4 g/dL (12.0-18.0); LYMPHOCYTES # (AUTO) 1.1 K/uL (2.0-11.5); LYMPHOCYTES % (AUTO) 21.2 % (20.5-51.1); MEAN CORPUSCULAR HEMOGLOBIN 33 pg (27-31); MEAN CORPUSCULAR HGB CONC 34 g/dL (33-37); MEAN CORPUSCULAR VOLUME 98.4 fL (80-94); MONOCYTES # (AUTO) 0.6 K/uL (0.8-1.0); MONOCYTES % (AUTO) 11.1 % (1.7-9.3); NEUTROPHILS # (AUTO) 3.4 K/uL (1.8-7.7); NEUTROPHILS % (AUTO) 64.4 % (42.2-75.2); PLATELET COUNT (AUTO) 271 K/uL (140-450); RED BLOOD CELL COUNT(AUTO) 4.06 MIL/uL (4.20-6.10); RED CELL DISTRIBUTION WIDTH 13.7 % (11.6-13.7); WHITE BLOOD COUNT (AUTO) 5.3 K/uL (4.8-10.8)
[2019-03-20 06:39] LABS: ANION GAP 12.9 (8-16); CARBON DIOXIDE 27.9 mmol/L (21-32); CREATININE 0.5 mg/dL (0.7-1.3); POTASSIUM 3.8 mmol/L (3.5-5.1)
[2019-03-20 06:53] LABS: MAGNESIUM 1.8 mg/dL (1.8-2.4)
[2019-03-20 06:54] LABS: BILIRUBIN,DIRECT 8.6 mg/dL (0.0-0.3); TOTAL BILIRUBIN 11.1 mg/dL (0.0-1.0)
[2019-03-20] MEDS: ALBUTEROL SULFATE/IPRATROPIU 3 ML SOL IH SCH ×3 (07:00→19:54)
[2019-03-20] MEDS: DEXT 5% / NACL 0.45% 1,000 ML IV SCH ×2 (07:45→21:47)
--- NOTE | 2019-03-20 07:55 | NUR ---
ENDORSED PATIENT TO DAY SHIFT NURSE. PATIENT IN STABLE CONDITION.
--- NOTE | 2019-03-20 07:59 | NUR ---
RECEIVED HAND OFF REPORT FROM PM RN PT APPEARS STABLE AND IN NO APPARENT DISTRESS. ALL SAFETY MEASURES ARE IN PLACE WILL CONTINUE TO MONITOR
[2019-03-20 08:15] VITALS: BP 136/85
[2019-03-20] MEDS: risperiDONE 1 MG TAB PO SCH ×3 (09:00→21:35)
[2019-03-20] MEDS: POLYETHYLENE GLYCOL 17 GM/PKT PO SCH (09:00)
[2019-03-20] MEDS: BISACODYL 10 MG SUPP RC SCH (09:00)
[2019-03-20] MEDS: LACTOBACILLUS RHAMNOSUS GG 1 EACH CAP PO SCH (09:00)
[2019-03-20] MEDS: LISINOPRIL 20 MG TAB PO SCH (09:00)
[2019-03-20] MEDS: SENNA 8.6 MG TAB PO SCH (09:00)
[2019-03-20] MEDS: DOCUSATE SODIUM 250 MG GELCAP PO SCH ×3 (09:00→21:35)
[2019-03-20] MEDS: LORATADINE 10 MG TAB PO SCH (09:00)
[2019-03-20] MEDS: MUPIROCIN CA NASAL 2% 1GM TUBE NS SCH (09:09)
[2019-03-20] MEDS: CHLORHEXADINE GLUC 2% CLOTH TP SCH (09:09)
--- NOTE | 2019-03-20 10:17 | NUR ---
attempted to give pt a coloring book and crayon. pt threw them on the floor
[2019-03-20] MEDS: AZITHROMYCIN 250 MG in DEXTROSE 5% 250 ML IV SCH (10:52)
--- NOTE | 2019-03-20 16:08 | NUR ---
PAGED PT ABOUT SWALLOW ORDER. SINCE PT HAS BEEN CHANGED FROM NPO TO MECHANICAL SOFT DIET
[2019-03-20 16:43] VITALS: BP 146/72
--- NOTE | 2019-03-20 19:29 | NUR ---
* ST NOTE * Pt seen at bedside. Pt alert and cooperative, appearing to not be in pain at this time d/t lack of facial grimacing, groaning, etc. Bedside dysphagia and oral mechanism exams completed. See evaluation report for further details. Pt tolerating 7/7 alternating PO trials of mechanical soft chicken and brown rice 3-5 CCs at a time via a spoon w/o s/s of aspiration or choking. Pt also tolerating 5/5 alternating PO trials of thin liquid apple juice via a cup 2/2 to pt refusing PO intake of thin liquids via a straw, all w/o s/s of aspiration. Pt however presenting with delayed residual cough after PO intake of m/s and thin liquids on 2 instances. Clinician attempting to provide nectar-thickened liquids, but pt turning his head and raising his right hand, appearing to refuse trial. Pt and nsg education thus completed re: aspiration precautions and safe swallow compensatory strategies pt and caregiver/nsg could utilize to aid pt w/swallow function, w/pt indifferent but caregiver/Nsg Roseann verbalizing understanding and agreement w/clinician's recommendations. Because pt presenting with delayed residual cough, it is thus recommended pt's PO diet consistency be modified to mechanical soft-GROUND textures w/thin liquids for all meals, and w/aspiration precautions in place. No further ST follow up recommended at this time. Pt and caregiver/Nsg Roseann education completed re: results of evaluation; benefits of abiding by aspiration precautions and recommended Po diet consistency; and prognosis for improvement; w/pt indifferent but caregiver/Nsg Roseann verbalizing understanding and agreement w/clinician's recommendations. Recommend: - PO DIET CONSISTENCY OF MECHANICAL SOFT-GROUND TEXTURES W/THIN LIQUIDS for all meals - PO MEDICATION ADMINISTRATION CRUSHED IN PUREE TEXTURES - PO INTAKE OF THIN LIQUIDS THROUGH A CUP ONLY - PT DISLIKES STRAW - MAINTAIN STRICT ASPIRATION PRECAUTIONS DURING PT's PO INTAKE - Pt requires total assistance w/feeding - Feeder to SIT PT UP AT 80-90 DEGREE ANGLE DURING PO INTAKE; FEED PT SLOWLY; ALTERNATE BTWN SOLIDS & LIQUIDS; AND PROVIDE SMALL BITES/SIPS No further ST follow up recommended at this time. NOMS Level 3 Time In/Out 18:50 - 19:20
--- NOTE | 2019-03-20 19:30 | NUR ---
ENDORSED PT AT BEDSIDE REPORT TO PM RN PT AWAKE IN BED PT APPEARS STABLE AND IN NO APPARENT DISTRESS. ALL SAFETY MEASURES ARE IN PLACE IVF INFUSING IV SITE PATENT ALL SAFETY MEASURES ARE IN PLACE
--- NOTE | 2019-03-20 19:31 | NUR ---
RECEIVED BEDSIDE REPORT FROM AM SHIFT RN. PT IN BED AWAKE. PT IS NON-VERBAL, MENTALLY DELAYED. NO SIGNS OF RESPIRATORY DISTRESS OR SOB NOTED. D5 1/2 NS 80 ML/HR WITH IV ACCESS ON RIGHT HAND 24 GAUGE , PATENT, INTACT AND ASYMPTOMATIC INFUSING WELL. . PT ON FALL RISK BED IN LOW POSITION. PT ON CONTACT PRECAUTIONS FOR POSITIVE MRSA NARES. WILL CONTINUE TO MONITOR.
--- NOTE | 2019-03-20 21:06 | NUR ---
PT TURNED TO ONE SIDE, REPOSITIONED AND CLEANED, NO BM NOTED
--- NOTE | 2019-03-20 23:42 | NUR ---
PT STILL AWAKE, PLACED HIM ON BED COMFORTABLY, PT WENT TO SLEEP
[2019-03-21] VITALS: BP 136/71
--- NOTE | 2019-03-21 02:42 | NUR ---
STILL SLEEPING, CHECKED ON PATIENT, TURNED PT AND CHANGED CHUX, PT WENT BACK TO SLEEP
--- NOTE | 2019-03-21 03:33 | NUR ---
CHECKED ON PT STILL SLEEPING TURNED AGAIN TO ONE SIDE W/ SENIOR OUTSIDE SALES REPRESENTATIVE, CHECKED FOR WETNESS, READJUSTED LINENS
[2019-03-21 06:25] LABS: BASOPHILS # (AUTO) 0.1 K/uL (0.00-0.22); BASOPHILS % (AUTO) 2.5 % (0.0-2.0); EOSINOPHILS # (AUTO) 0.2 K/uL (0-0.4); HEMATOCRIT 37.6 % (36-52); HEMOGLOBIN 12.9 g/dL (12.0-18.0); LYMPHOCYTES # (AUTO) 1.1 K/uL (2.0-11.5); LYMPHOCYTES % (AUTO) 26.4 % (20.5-51.1); MEAN CORPUSCULAR HEMOGLOBIN 34 pg (27-31); MEAN CORPUSCULAR HGB CONC 34 g/dL (33-37); MEAN CORPUSCULAR VOLUME 98.1 fL (80-94); MONOCYTES # (AUTO) 0.6 K/uL (0.8-1.0); MONOCYTES % (AUTO) 14.1 % (1.7-9.3); NEUTROPHILS # (AUTO) 2.2 K/uL (1.8-7.7); PLATELET COUNT (AUTO) 268 K/uL (140-450); RED BLOOD CELL COUNT(AUTO) 3.83 MIL/uL (4.20-6.10); RED CELL DISTRIBUTION WIDTH 13.9 % (11.6-13.7); WHITE BLOOD COUNT (AUTO) 4.3 K/uL (4.8-10.8)
[2019-03-21 06:57] LABS: MAGNESIUM 1.8 mg/dL (1.8-2.4); PHOSPHORUS 3.3 mg/dL (2.5-4.9)
[2019-03-21 06:58] LABS: ANION GAP 12.9 (8-16); CARBON DIOXIDE 26.4 mmol/L (21-32); CREATININE 0.5 mg/dL (0.7-1.3); POTASSIUM 3.3 mmol/L (3.5-5.1)
--- NOTE | 2019-03-21 06:58 | NUR ---
AWAKE, ALERT OEIENTED X 1; APHASIC; NONVERBAL ENDORSED TO NEXT SHIFT , PT IN STABLE CONDITION AT THIS TIME. ENDORSED TO NEXT SHIFT
--- NOTE | 2019-03-21 07:25 | NUR ---
RECEIVED BEDSIDE REPORT FROM SUPERVISOR DYER NURSE FOR CONTINUITY OF CARE. PATIENT IS RESTING ON BED AT THIS TIME. AROUSABLE TO VOICE. RESPIRATION EVEN AND UNLABORED ON RA. NO SIGNS OF DISTRESS NOTED. IV CLEAN AND INTACT, INFUSING PER MD ORDER. PATIENT IS INCONTINENT AND BEDREST. NPO ENFORCED AND SIGN POSTED ON DOOR. CONTACT PRECAUTION IN PLACE AND SIGN POSTED. SAFETY MEASURES IN PLACE. BED IN LOW POSITION AND CALL LIGHT WITHIN REACH. FALL RISK PROTOCOL IN PLACE AND BED ALARM ACTIVATED.
[2019-03-21 07:41] LABS: ALBUMIN 2.7 g/dL (3.4-5.0); BILIRUBIN,DIRECT 7.9 mg/dL (0.0-0.3); TOTAL BILIRUBIN 10.3 mg/dL (0.0-1.0)
[2019-03-21 08:00] VITALS: BP 112/76
[2019-03-21] MEDS: risperiDONE 1 MG TAB PO SCH ×2 (09:00→20:50)
[2019-03-21] MEDS: SENNA 8.6 MG TAB PO SCH (09:00)
[2019-03-21] MEDS: LACTOBACILLUS RHAMNOSUS GG 1 EACH CAP PO SCH (09:00)
[2019-03-21] MEDS: POLYETHYLENE GLYCOL 17 GM/PKT PO SCH (09:00)
[2019-03-21] MEDS: LISINOPRIL 20 MG TAB PO SCH (09:00)
[2019-03-21] MEDS: LORATADINE 10 MG TAB PO SCH (09:00)
[2019-03-21] MEDS: DOCUSATE SODIUM 250 MG GELCAP PO SCH ×2 (09:00→20:49)
[2019-03-21] MEDS: ALBUTEROL SULFATE/IPRATROPIU 3 ML SOL IH SCH ×2 (09:12→19:00)
--- NOTE | 2019-03-21 09:17 | NUR ---
pt refused tx. Pt removed right after placed tx on. Pt uncooperative.
[2019-03-21] MEDS: DEXT 5% / NACL 0.45% 1,000 ML IV SCH (09:44)
[2019-03-21] MEDS: MUPIROCIN CA NASAL 2% 1GM TUBE NS SCH (09:45)
[2019-03-21] MEDS: CHLORHEXADINE GLUC 2% CLOTH TP SCH (09:46)
[2019-03-21] MEDS: AZITHROMYCIN 250 MG in DEXTROSE 5% 250 ML IV SCH (09:47)
[2019-03-21] MEDS: BISACODYL 10 MG SUPP RC SCH (09:47)
--- NOTE | 2019-03-21 09:53 | NUR ---
ADMINISTERED SCHEDULED IV MED, BISACODYL, MUPROCIN OINTMENT, AND CHLOXIDINE CLOTH PER MD ORDER, MED EDUCATION PROVIDED TO PATIENT AND REINFORCEMENT NEEDED. PATIENT TOLERATED WELL. HOLD ALL PO MEDS DUE TO ECRP PROCEDURE AND DR JIMENEZ WAS AWARE. PATIENT AWAKE AND SITTING UP ON BED. FLACC 0. NO SIGNS OF DISTRESS NOTED. SAFETY MEASURES IN PLACE, BED IN LOW POSITION AND CALL LIGHT WITHIN REACH. FALL RISK PROTOCOL IN PLACE AND BED ALARM ACTIVATED.
[2019-03-21] MEDS ORDERED: POTASSIUM CHLORIDE 10 MEQ TABER PO SCH (10:52)
--- NOTE | 2019-03-21 11:33 | NUR ---
PATIENT AWAKE AND SITTING UP ON BED. RESPIRATION EVEN AND UNLABORED ON RA. FLACC 0. NO SIGNS OF DISTRESS NOTED. SAFETY MEASURES IN PLACE. BED IN LOW POSITION AND CALL LIGHT WITHIN REACH. FALL RISK PROTOCOL IN PLACE AND BED ALARM ACTIVATED.
--- NOTE | 2019-03-21 13:45 | NUR ---
PATIENT AWAKE AND RESTING ON BED AT THIS TIME. FLACC 0. NO SIGNS OF DISTRESS NOTED. SAFETY MEASURES IN PLACE. BED IN LOW POSITION POSITION AND CALL LIGHT WITHIN REACH. FALL RISK PROTOCOL IN PLACE AND BED ALARM ACTIVATED.
[2019-03-21] MEDS ORDERED: PROPOFOL 200 MG/20 ML VIAL IV ONE (14:25)
[2019-03-21] MEDS ORDERED: GLUCAGON 1 MG VIAL ONE (14:25)
--- NOTE | 2019-03-21 14:25 | NUR ---
PATIENT IS OFF UNIT TO OR DEPT ACCOMPANIED BY OR NURSE HATCH. PATIENT IS IN STABLE CONDITION.
--- NOTE | 2019-03-21 14:50 | NUR ---
03/21/19 RD FOLLOW UP COMPLETED PLEASE REFER TO NUTRITION ASSESSMENT UNDER CARE ACTIVITY FOR ESTIMATED NUTRITIONAL NEEDS. 1. CONTINUE NPO TOLERATED 2. IF/ WHEN MEDICALLY STABLE TO BEGIN NUTRITION, ADVANCE DIET TOLERATED TO 60G CCHO, MECHANICAL SOFT 3. RD TO FOLLOW-UP 2-3 DAYS, HIGH RISK TWIN VASQUEZ RD
--- NOTE | 2019-03-21 14:51 | NUR ---
NO TX GIVEN PT OFF UNIT
[2019-03-21 15:00] VITALS: BP 119/61
--- NOTE | 2019-03-21 17:00 | NUR ---
PATIENT CAME BACK TO THE UNIT ACCOMPANIED BY ABIMAEL HALL. VITAL SIGNS TAKEN; TEMP 97.2, BP 119/61, PULSE 70, RR 16, FLACC 0. SAFETY MEASURES IN PLACE. BED IN LOW POSITION AND CALL LIGHT WITHIN REACH. FALL RISK PROTOCOL IN PLACE AND BED ALARM ACTIVATED.
[2019-03-21] MEDS ORDERED: POTASSIUM CHLORIDE 20% 40 MEQ/15 ML UDC PO SCH (18:00)
--- NOTE | 2019-03-21 18:10 | NUR ---
ADMINISTERED MEDS PER MD ORDER, MEDS EDUCATION PROVIDED TO PATIENT AND REINFORCEMENT NEEDED. PATIENT AWAKE AND INSURANCE REPRESENTATIVE IS FEEDING PATIENT TO EAT DINNER. NO SIGNS OF DISTRESS NOTED. SAFETY MEASURES IN PLACE. BED IN LOW POSITION AND CALL LIGHT WITHIN REACH. FALL RISK PROTOCOL IN PLACE AND BED ALARM ACTIVATED.
--- NOTE | 2019-03-21 19:19 | NUR ---
ENDORSED PATIENT AT BEDSIDE TO SECURITY INCIDENT RESPONSE ENGINEER NURSE FOR CONTINUITY OF CARE. PATIENT IS AWAKE AND RESTING ON BED. NO SIGNS OF DISTRESS NOTED. SAFETY MEASURES IN PLACE. FALL RISK PROTOCOL IN PLACE AND BED ALARM ACTIVATED.
--- NOTE | 2019-03-21 19:19 | NUR ---
RECIEVED PT ON BED, NON VEBAL , MENTALLY DELAYED - FALL RISK - ON BED ALARM ON , NID, O2 SAT WNL ,IV SITE INTACT AND PATENT , YELLOWISH DISCOLORATION OF THE SKIN , NO C/O OF ANY PAIN - FLACC O , PLAN OF DISCUSSED BUT POOR UNDERSTANDING DUE TO MENTAL STATUS. ON SAFETY / FALL PRECAUTION PROTOCOL - CALL LIGHT WITHIN REACH . WILL CONT. TO MONITOR.
--- NOTE | 2019-03-21 21:19 | NUR ---
PATIENT REFUSED HHNTX. PT WOULD NOT LET ME GET POX CHECK
[2019-03-22] VITALS: BP 133/70
--- NOTE | 2019-03-22 | NUR ---
MADE ROUNDS , NO SIGNS OF DISTRESS NOTED , ON NPO.
--- NOTE | 2019-03-22 04:00 | NUR ---
MADE ROUNDS . NO SIGNS OF DISTRESS NOTED AT THIS TIME.
[2019-03-22] MEDS: DEXT 5% / NACL 0.45% 1,000 ML IV SCH ×2 (04:10→09:45)
[2019-03-22 06:33] LABS: BASOPHILS # (AUTO) 0.1 K/uL (0.00-0.22); BASOPHILS % (AUTO) 0.5 % (0.0-2.0); EOSINOPHILS # (AUTO) 0.1 K/uL (0-0.4); EOSINOPHILS % (AUTO) 0.6 % (0.0-4.0); HEMATOCRIT 39.3 % (36-52); HEMOGLOBIN 13.3 g/dL (12.0-18.0); LYMPHOCYTES # (AUTO) 1.5 K/uL (2.0-11.5); LYMPHOCYTES % (AUTO) 12.9 % (20.5-51.1); MEAN CORPUSCULAR HEMOGLOBIN 33 pg (27-31); MEAN CORPUSCULAR HGB CONC 34 g/dL (33-37); MEAN CORPUSCULAR VOLUME 97.1 fL (80-94); MONOCYTES # (AUTO) 1.4 K/uL (0.8-1.0); NEUTROPHILS # (AUTO) 8.6 K/uL (1.8-7.7); PLATELET COUNT (AUTO) 315 K/uL (140-450); RED BLOOD CELL COUNT(AUTO) 4.05 MIL/uL (4.20-6.10); RED CELL DISTRIBUTION WIDTH 14.1 % (11.6-13.7); WHITE BLOOD COUNT (AUTO) 11.6 K/uL (4.8-10.8)
[2019-03-22] MEDS: ALBUTEROL SULFATE/IPRATROPIU 3 ML SOL IH SCH (07:00)
--- NOTE | 2019-03-22 07:33 | NUR ---
ENDORSED TO AM SHIFT NURSE FOR CONT. OF CARE WITH STABLE CONDITION.
[2019-03-22 08:00] VITALS: BP 128/88
[2019-03-22 08:10] LABS: MAGNESIUM 1.9 mg/dL (1.8-2.4)
[2019-03-22 08:17] LABS: ANION GAP 12.7 (8-16); CARBON DIOXIDE 27.6 mmol/L (21-32); CREATININE 0.6 mg/dL (0.7-1.3); POTASSIUM 3.3 mmol/L (3.5-5.1)
[2019-03-22 08:48] VITALS: BP 148/80
[2019-03-22] MEDS: POLYETHYLENE GLYCOL 17 GM/PKT PO SCH (09:00)
[2019-03-22] MEDS: MUPIROCIN CA NASAL 2% 1GM TUBE NS SCH (09:00)
[2019-03-22] MEDS ORDERED: AZIT250T3 PO (09:05)
[2019-03-22] MEDS ORDERED: ROC1PM IV (09:05)
[2019-03-22] MEDS ORDERED: POTASSIUM CHLORIDE 10 MEQ TABER PO SCH (09:30)
[2019-03-22] MEDS: LACTOBACILLUS RHAMNOSUS GG 1 EACH CAP PO SCH (10:00)
[2019-03-22] MEDS: AZITHROMYCIN 250 MG in DEXTROSE 5% 250 ML IV SCH (10:53)
[2019-03-22] MEDS: LORATADINE 10 MG TAB PO SCH (11:10)
[2019-03-22] MEDS: DOCUSATE SODIUM 250 MG GELCAP PO SCH ×2 (11:12→20:56)
[2019-03-22] MEDS: risperiDONE 1 MG TAB PO SCH ×2 (11:13→20:55)
[2019-03-22] MEDS: LISINOPRIL 20 MG TAB PO SCH (11:14)
[2019-03-22] MEDS: BISACODYL 10 MG SUPP RC SCH (11:17)
[2019-03-22 12:26] LABS: ALBUMIN 3.3 g/dL (3.4-5.0); BILIRUBIN,DIRECT 5.4 mg/dL (0.0-0.3); TOTAL BILIRUBIN 8.2 mg/dL (0.0-1.0)
[2019-03-22] MEDS: SENNA 8.6 MG TAB PO SCH (13:49)
--- NOTE | 2019-03-22 14:03 | NUR ---
[facility] TO CALL BACK RE TRANSFER TO HIGHER LEVEL OF THIS PT
[2019-03-22 16:00] VITALS: BP 128/88
--- NOTE | 2019-03-22 19:35 | NUR ---
RECEIEVED , NON VERBAL , MENTALLY DELAYED , NID , IV - OUT - FOR REINSERTION , WITH MARKED JAUNDICE - SOFT ABDOMEN - FLACC O , FOR TRANSFER TO HIGHER LEVEL OF CARE BUT NO FINAL DECISION YET BET. THE PT'S VANCE AND DR LAMA , , ON PUREE DIET , PLAN OF CARE DISCUSSED BUT POOR UNDERSTANDING .ON FALL / SAFETY PRECAUTION PROTOCOL - BED ALARM ON , CALL LIGHT WITHIN REACH . WILL CONT. TO MONITOR,.
--- NOTE | 2019-03-22 19:59 | NUR ---
[facility] on weekends. Charge nurse and care takers were communicated of this. Per public safety police wishes, pt would like to be transfered to [place] instead.
--- NOTE | 2019-03-22 20:46 | NUR ---
RECEIVED PATIENT ON ROOM AIR, PULSE OX SAT 94%. NO SOB NOTED AT THIS TIME. PRN HHN NOT INDICATED. NO RESPIRATORY DISTRESS NOTED. WILL CONTINUE TO MONITOR.
--- NOTE | 2019-03-22 23:44 | NUR ---
[facility] CALLED AND TALKED W/MT.THEY STATED NO MS BED AVAILABLE.
[2019-03-23] VITALS: BP 142/59
--- NOTE | 2019-03-23 | NUR ---
MADE ROPUNDS , NO SIGNS OF DISTRESS NOTED AT THIS TIME.
--- NOTE | 2019-03-23 02:00 | NUR ---
MADE ROUND , FULLY WET DIAPER , FINISHER DENTURE CHANGED IT , NO SIGNS OF DISTRESS NOTED AT THIS TIME.
--- NOTE | 2019-03-23 03:31 | NUR ---
PLACED A CALL TO [facility] ([phone])TRANSFER CENTER TO INQUIRE FOR DIRECT ADMIT, CHIEF CONSOLE OPERATOR STATED HOSPITAL IS IN FULL CAPACITY UNLESS THIS IS A STEMI OR STROKE TRANSFER.
--- NOTE | 2019-03-23 04:00 | NUR ---
MADE ROUNDS , NO SIGNS OF DISTRESS NOTED AT THIS TIME , CALL LIGHT WITHIN REACH - BED ALARM ON.
[2019-03-23] MEDS: DEXT 5% / NACL 0.45% 1,000 ML IV SCH ×3 (04:06→21:40)
--- NOTE | 2019-03-23 06:00 | NUR ---
MADE ROUNDS . LAB STAFF AT BED SIDE DOING BLOOD EXTRACTION . NO SIGNS OF DISTRESS NOTED AT THIS TIME.
--- NOTE | 2019-03-23 07:22 | NUR ---
ENDORSED TO AM SHIFT WITH STABLE CONDITION - STILL WAITING THE FINAL DECISION WHERE TO TRANSFER FOR HIGHER LEVEL OF CARE.
--- NOTE | 2019-03-23 07:25 | NUR ---
RECEIVED REPORT FROM AEROPHYSICIST NURSE. PATIENT IS IN BED, AWAKE, NON-VERBAL, APHASIC. RESPIRATION EVEN AND UNLABORED. IVF D5 1/2 NS INFUSING AT 80ML/HR VIA IV RIGHT HAND 24G. TOLERATING WELL. SAFETY MEASURES IN PLACE. CALL LIGHT WITHIN REACH.
[2019-03-23 07:40] LABS: BASOPHILS % (AUTO) 0.2 % (0.0-2.0); EOSINOPHILS % (AUTO) 0.3 % (0.0-4.0); HEMATOCRIT 39.4 % (36-52); HEMOGLOBIN 13.4 g/dL (12.0-18.0); LYMPHOCYTES % (AUTO) 10.5 % (20.5-51.1); MEAN CORPUSCULAR HEMOGLOBIN 33 pg (27-31); MEAN CORPUSCULAR HGB CONC 34 g/dL (33-37); MEAN CORPUSCULAR VOLUME 97.9 fL (80-94); MONOCYTES % (AUTO) 10.4 % (1.7-9.3); NEUTROPHILS # (AUTO) 7.4 K/uL (1.8-7.7); NEUTROPHILS % (AUTO) 78.6 % (42.2-75.2); PLATELET COUNT (AUTO) 314 K/uL (140-450); RED BLOOD CELL COUNT(AUTO) 4.03 MIL/uL (4.20-6.10); RED CELL DISTRIBUTION WIDTH 14.4 % (11.6-13.7); WHITE BLOOD COUNT (AUTO) 9.4 K/uL (4.8-10.8)
[2019-03-23 08:00] VITALS: BP 132/72
[2019-03-23 08:08] LABS: MAGNESIUM 1.8 mg/dL (1.8-2.4); PHOSPHORUS 3.2 mg/dL (2.5-4.9)
[2019-03-23 08:17] LABS: ANION GAP 13.4 (8-16); CARBON DIOXIDE 28.2 mmol/L (21-32); CREATININE 0.6 mg/dL (0.7-1.3); POTASSIUM 3.6 mmol/L (3.5-5.1)
[2019-03-23] MEDS ORDERED: AZITHROMYCIN 250 MG in DEXTROSE 5% 250 ML IV SCH (09:00)
[2019-03-23] MEDS: LACTOBACILLUS RHAMNOSUS GG 1 EACH CAP PO SCH (09:11)
[2019-03-23] MEDS: DOCUSATE SODIUM 250 MG GELCAP PO SCH ×2 (09:11→21:36)
[2019-03-23] MEDS: LISINOPRIL 20 MG TAB PO SCH (09:12)
[2019-03-23] MEDS: LORATADINE 10 MG TAB PO SCH (09:12)
[2019-03-23] MEDS: risperiDONE 1 MG TAB PO SCH ×2 (09:12→21:36)
[2019-03-23] MEDS: SENNA 8.6 MG TAB PO SCH (09:13)
[2019-03-23] MEDS: BISACODYL 10 MG SUPP RC SCH (09:16)
[2019-03-23] MEDS: POLYETHYLENE GLYCOL 17 GM/PKT PO SCH (09:16)
[2019-03-23] MEDS: AZITHROMYCIN 250 MG in DEXTROSE 5% 250 ML IV SCH (09:18)
[2019-03-23] MEDS: MUPIROCIN CA NASAL 2% 1GM TUBE NS SCH (09:18)
[2019-03-23] MEDS: CHLORHEXADINE GLUC 2% CLOTH TP SCH (09:25)
--- NOTE | 2019-03-23 09:30 | NUR ---
AM MEDICATIONS GIVEN ORDERED. PATIENT IN BED AND REPOSITIONED. NO ACUTE DISTRESS NOTED. O2 SAT @ 95% ROOM AIR.
--- NOTE | 2019-03-23 11:30 | NUR ---
RECEIVED A CALL FROM SUMAYA IN [facility] IN REGARDS TO BED AVAILABILITY FOR PATIENT. SUMAYA TO CALL BACK FOR AVAILABILITY.
[2019-03-23 12:41] LABS: ALBUMIN 3.3 g/dL (3.4-5.0); BILIRUBIN,DIRECT 2.8 mg/dL (0.0-0.3); TOTAL BILIRUBIN 4.2 mg/dL (0.0-1.0)
--- NOTE | 2019-03-23 13:30 | NUR ---
SPOKE TO PATIENT'S DETENTION SERGEANT AFTAB ABOUT PATIENT'S DIET FROM [facility] STATED PATIENT WAS ON MECHANICAL SOFT CHOPPED DIET. REPORTED TO DR. LAMA, RECEIVED ORDER OK TO CHANGE DIET TO MECHANICAL SOFT CHOPPED DIET.
[2019-03-23 16:00] VITALS: BP 134/86
--- NOTE | 2019-03-23 17:11 | NUR ---
PT IS AWAKE AND CALM, LYING ON THE BED, IVPB ROCEPHIN WAS GIVEN TO PT NOW.
--- NOTE | 2019-03-23 19:17 | NUR ---
ENDORSED PT TO DATASTAGE CONSULTANT NURSEWILLIAM FOR CONTINUITY OF CARE.
--- NOTE | 2019-03-23 19:18 | NUR ---
RECEIVED BEDSIDE REPORT FROM DAY SHIFT NURSE. PATIENT IS IN BED, SLEEPING, APHASIC. RESPIRATION EVEN AND UNLABORED. IVF D5 1/2 NS INFUSING AT 80ML/HR VIA IV RIGHT HAND 24G. IV SITE PATENT, INTACT AND ASYMPTOMATIC. SKIN INTACT, WARM AND DRY TO TOUCH. BED IN LOW POSITION, SAFETY MEASURES IN PLACE. CALL LIGHT WITHIN REACH.
--- NOTE | 2019-03-23 20:40 | NUR ---
RECEIVED PATIENT ON ROOM AIR, PULSE OX SAT 94%. NO SOB NOTED AT THIS TIME. PRN HHN NOT INDICATED. WILL CONTINUE TO MONITOR.
--- NOTE | 2019-03-23 21:46 | NUR ---
GIVEN COLACE, RISPERDAL, AND HEPARIN MD ORDERED. PT TOLERATED WELL.
--- NOTE | 2019-03-23 23:58 | NUR ---
VS CHECKED, WITHIN PT BASELINE. WILL CONTINUE TO MONITOR.
[2019-03-24] VITALS: BP 147/84
--- NOTE | 2019-03-24 01:43 | NUR ---
PT AWAKE, LYING IN THE BED. NO ACUTE DISTRESS NOTED.
--- NOTE | 2019-03-24 03:45 | NUR ---
PT AWAKE, LYING IN THE BED. NO ACUTE DISTRESS NOTED.
--- NOTE | 2019-03-24 05:30 | NUR ---
PT SLEEPING IN BED. NO ACUTE DISTRESS NOTED. BED IN LOW POSITION, CALL LIGHT WITHIN REACH.
[2019-03-24 06:35] LABS: BASOPHILS % (AUTO) 0.4 % (0.0-2.0); EOSINOPHILS # (AUTO) 0.1 K/uL (0-0.4); EOSINOPHILS % (AUTO) 1.2 % (0.0-4.0); HEMATOCRIT 36.2 % (36-52); HEMOGLOBIN 12.4 g/dL (12.0-18.0); LYMPHOCYTES # (AUTO) 1.4 K/uL (2.0-11.5); LYMPHOCYTES % (AUTO) 17.7 % (20.5-51.1); MEAN CORPUSCULAR HEMOGLOBIN 34 pg (27-31); MEAN CORPUSCULAR HGB CONC 34 g/dL (33-37); MEAN CORPUSCULAR VOLUME 97.9 fL (80-94); MONOCYTES # (AUTO) 0.8 K/uL (0.8-1.0); MONOCYTES % (AUTO) 10.3 % (1.7-9.3); NEUTROPHILS # (AUTO) 5.7 K/uL (1.8-7.7); NEUTROPHILS % (AUTO) 70.4 % (42.2-75.2); PLATELET COUNT (AUTO) 279 K/uL (140-450); RED CELL DISTRIBUTION WIDTH 14.2 % (11.6-13.7); WHITE BLOOD COUNT (AUTO) 8.1 K/uL (4.8-10.8)
[2019-03-24 06:51] LABS: ALBUMIN 2.8 g/dL (3.4-5.0); BILIRUBIN,DIRECT 2.1 mg/dL (0.0-0.3); MAGNESIUM 1.7 mg/dL (1.8-2.4); PHOSPHORUS 3.7 mg/dL (2.5-4.9); TOTAL BILIRUBIN 2.8 mg/dL (0.0-1.0)
[2019-03-24 06:52] LABS: ANION GAP 11.2 (8-16); CARBON DIOXIDE 29.4 mmol/L (21-32); CREATININE 0.6 mg/dL (0.7-1.3); POTASSIUM 3.6 mmol/L (3.5-5.1)
--- NOTE | 2019-03-24 06:54 | NUR ---
PT SLEEPING IN BED. NO ACUTE DISTRESS NOTED.
--- NOTE | 2019-03-24 07:22 | NUR ---
RECEIVED BEDSIDE REPORT FROM MANAGER COMMERCIAL SALES NURSE. PT IS AWAKE, NO S/S OF ACUTE DISTRESS NOTED. PT IS ON ROOM AIR, SKIN INTACT. IV SITE NOTED ON THE R HAND 24 G, INFUSING D5 1/2 NS 80 ML/HR. FALL PRECAUTIONS ARE IN PLACE. CALL LIGHT IS WITHIN REACH.
--- NOTE | 2019-03-24 07:45 | NUR ---
RECEIVED A CALL FROM JUDI, BUSINESS ANALYTICS SPECIALIST FROM PT'S SN[facility], SHE IS ASKING ABOUT WHICH FACILITY WE ARE GOING TO TRANSFER PT TO. I TOLD HER THAT WE DO NOT HAVE A FINAL PLACEMENT YET, BUT [facility], PER WELDER MANUFACTURE NURSE. SHE ASKED TO BE CALLED AND NOTIFIED ON HER CELL PHONE UPON PT'S TRANSFER [phone]. VALENTINE WILSON IS AWARE. Addendum: 03/24/19 at 1950 by Shelley Perera RN EVETTE IS AWARE AND ALREADY GOT IN TOUCH WITH JUDI
[2019-03-24 08:00] VITALS: BP 126/91
[2019-03-24] MEDS: DOCUSATE SODIUM 250 MG GELCAP PO SCH ×2 (09:54→22:01)
[2019-03-24] MEDS: LORATADINE 10 MG TAB PO SCH (09:54)
[2019-03-24] MEDS: LISINOPRIL 20 MG TAB PO SCH (09:55)
[2019-03-24] MEDS: LACTOBACILLUS RHAMNOSUS GG 1 EACH CAP PO SCH (09:55)
[2019-03-24] MEDS: BISACODYL 10 MG SUPP RC SCH (09:56)
[2019-03-24] MEDS: AZITHROMYCIN 250 MG in DEXTROSE 5% 250 ML IV SCH (09:56)
[2019-03-24] MEDS: risperiDONE 1 MG TAB PO SCH ×2 (09:56→22:02)
[2019-03-24] MEDS: POLYETHYLENE GLYCOL 17 GM/PKT PO SCH (09:56)
[2019-03-24] MEDS: SENNA 8.6 MG TAB PO SCH (10:07)
--- NOTE | 2019-03-24 10:14 | NUR ---
AM MEDS ADMINISTERED, CRUSHED WITH VANILLA PUDDING. PT TOLERATED WELL. NEW BAG OF D5 1/2 NS HUNG.
[2019-03-24] MEDS ORDERED: MAGNESIUM OXIDE 400 MG TAB PO SCH (10:30)
--- NOTE | 2019-03-24 10:32 | NUR ---
CALLED [facility] SPOKE WITH THE COORDINATOR [facility] CAN NOT TAKE THE PATIENT BECAUSE THEY CAN'T DO THE PROCEDURE AT [facility] AND RECOMMENDED TO [facility]. CALLED [facility] SPOKE WITH KRISSY LAMA AND DR FOX PHONE NUMBER AND WILL REVIEW THE CASE AND WILL CONTACT [facility] CM TO FOLLOW
--- NOTE | 2019-03-24 10:58 | NUR ---
CALLED [facility] [phone] SPOKE WITH LESLIE SALES PROVIDED ALL PT'S INFORMATION , STATED DR IVEY ACCEPTING PT ,REQUESTING TRANSFER BACK AGREEMENT LETTER TO BE SIGNED , LESLIE WILL FAX THE [place] AND WILL FOLLOW UP
[2019-03-24] MEDS: DEXT 5% / NACL 0.45% 1,000 ML IV SCH ×2 (11:45→23:54)
--- NOTE | 2019-03-24 14:53 | NUR ---
03/24/19 RD FOLLOW UP COMPLETED PLEASE REFER TO NUTRITION ASSESSMENT UNDER CARE ACTIVITY FOR ESTIMATED NUTRITIONAL NEEDS. 1. CONTINUE MECHANICAL SOFT DIET TOLERATED 2. RECOMMEND ENSURE CLEAR TID 3. CONTINUE TO PROVIDE ASSISTANCE WITH MEALS 4. RD TO FOLLOW-UP 2-3 DAYS, HIGH RISK TWIN VASQUEZ, RD
[2019-03-24 16:00] VITALS: BP 134/84
--- NOTE | 2019-03-24 16:30 | NUR ---
FAXED THE TRANSFER BACK AGREEMENT LETTER TO [facility] AND [facility] ,AT [place] SPOKE WITH RIMMA STILL WAITING FOR GI DR TO ACCEPT THE PATIENT.
[2019-03-24] MEDS ORDERED: MAGNESIUM OXIDE 400 MG TAB ONE (18:09)
--- NOTE | 2019-03-24 18:30 | NUR ---
PT EATING DINNER ASSISTED BY MEDHAT
--- NOTE | 2019-03-24 19:22 | NUR ---
PT ENDORSED TO PHOTOGRAPHIC EQUIPMENT MECHANIC NURSE IN STABLE CONDITION.
--- NOTE | 2019-03-24 19:25 | NUR ---
RECEIVED PT FROM RYANN HALL PT AOX1 NONVERBAL , MENTALLY DELAY, IV ON RT FA INFUSING WELL PT ON CONTACT ISOLATION FOR MRSA NARES, BED ALARM ON , ;FALL RISK PROTOCOL INITIAL ASSESSMENT DONE
[2019-03-24 20:00] VITALS: BP 150/90
--- NOTE | 2019-03-24 20:41 | NUR ---
RECEIVED PATIENT ON ROOM AIR, PULSE OX SAT 95%. NO SOB NOTED AT THIS TIME. PRN HHN NOT INDICATED. NO ACUTE RESPIRATORY DISTRESS NOTED. WILL CONTINUE TO MONITOR.
--- NOTE | 2019-03-24 22:00 | NUR ---
PT REPOSITIONED, LINEN CHANGED PT INCONTINENT NOT DISTRESS NOTED
[2019-03-25] VITALS: BP 138/87
--- NOTE | 2019-03-25 01:50 | NUR ---
PT AWAKE NONVERBAL NOT SIGNS OF DISTRESS NOTED REMAIN QUIET AT THIS TIME
--- NOTE | 2019-03-25 04:30 | NUR ---
SPONGE BATH GIVEN LINEN CHANGED NOT DISTRESS NOTED REMAIN COOPERATIVE
--- NOTE | 2019-03-25 06:43 | NUR ---
PT PENDING TO BE TRANSFER TO HIGH LEVEL OF CARE SLEEPING AT THIS TIME NOT DISTESS NOTED , JAUNDICE GENERALIZED, PT WILL ENDORSED TO DAY SHIFT NURSE FOR CONTINUE OF CARE MN;URT;BN
--- NOTE | 2019-03-25 07:22 | NUR ---
RECEIVED BEDSIDE REPORT FROM LINK WIRE FABRIC MACHINE TENDER NURSE, PT IS ASLEEP, NO S/S OF ACUTE DISTRESS NOTED. PT ON ROOM AIR, SKIN INTACT. IV SITE ON THE R HAND 24 G IS INFUSING D5 1/2 NS 80 ML/HR. CONTACT ISOLATION IN PLACE FOR MRSA NARES. FALL PRECAUTIONS ARE IN PLACE. WILL CONTINUE TO MONITOR.
[2019-03-25 08:00] VITALS: BP 114/83
[2019-03-25] MEDS: LISINOPRIL 20 MG TAB PO SCH (09:45)
[2019-03-25] MEDS: risperiDONE 1 MG TAB PO SCH (09:45)
[2019-03-25] MEDS: LORATADINE 10 MG TAB PO SCH (09:46)
[2019-03-25] MEDS: SENNA 8.6 MG TAB PO SCH (09:46)
[2019-03-25] MEDS: LACTOBACILLUS RHAMNOSUS GG 1 EACH CAP PO SCH (09:46)
[2019-03-25] MEDS: DOCUSATE SODIUM 250 MG GELCAP PO SCH (09:46)
[2019-03-25] MEDS: BISACODYL 10 MG SUPP RC SCH (09:47)
[2019-03-25] MEDS: AZITHROMYCIN 250 MG in DEXTROSE 5% 250 ML IV SCH (09:58)
[2019-03-25 10:00] LABS: BASOPHILS # (AUTO) 0.1 K/uL (0.00-0.22); EOSINOPHILS # (AUTO) 0.4 K/uL (0-0.4); EOSINOPHILS % (AUTO) 5.2 % (0.0-4.0); HEMATOCRIT 37.7 % (36-52); HEMOGLOBIN 12.9 g/dL (12.0-18.0); LYMPHOCYTES # (AUTO) 1.4 K/uL (2.0-11.5); LYMPHOCYTES % (AUTO) 18.8 % (20.5-51.1); MEAN CORPUSCULAR HEMOGLOBIN 34 pg (27-31); MEAN CORPUSCULAR HGB CONC 34 g/dL (33-37); MEAN CORPUSCULAR VOLUME 98.6 fL (80-94); MONOCYTES # (AUTO) 0.9 K/uL (0.8-1.0); MONOCYTES % (AUTO) 12.3 % (1.7-9.3); NEUTROPHILS # (AUTO) 4.8 K/uL (1.8-7.7); NEUTROPHILS % (AUTO) 62.7 % (42.2-75.2); PLATELET COUNT (AUTO) 302 K/uL (140-450); RED BLOOD CELL COUNT(AUTO) 3.82 MIL/uL (4.20-6.10); RED CELL DISTRIBUTION WIDTH 14.1 % (11.6-13.7); WHITE BLOOD COUNT (AUTO) 7.6 K/uL (4.8-10.8)
[2019-03-25] MEDS: POLYETHYLENE GLYCOL 17 GM/PKT PO SCH (10:04)
--- NOTE | 2019-03-25 10:15 | NUR ---
AM MEDS ADMINISTERED, CRUSHED WITH PUDDING, PT TOLERATED WELL.
[2019-03-25 10:16] LABS: ANION GAP 12.7 (8-16); CARBON DIOXIDE 27.1 mmol/L (21-32); CREATININE 0.7 mg/dL (0.7-1.3); POTASSIUM 3.8 mmol/L (3.5-5.1)
[2019-03-25 10:22] LABS: ALBUMIN 2.7 g/dL (3.4-5.0); BILIRUBIN,DIRECT 1.7 mg/dL (0.0-0.3); MAGNESIUM 1.8 mg/dL (1.8-2.4); PHOSPHORUS 3.7 mg/dL (2.5-4.9); TOTAL BILIRUBIN 2.4 mg/dL (0.0-1.0)
--- NOTE | 2019-03-25 11:17 | NUR ---
PT WAS PROVIDED ORAL CARE BY STUDENT NURSE. PT IS RESTING COMFORTABLY IN BED AT THIS TIME, NO S/S OF DISTRESS.
[2019-03-25] MEDS: DEXT 5% / NACL 0.45% 1,000 ML IV SCH (12:45)
--- NOTE | 2019-03-25 13:09 | NUR ---
PT HAD A LARGE SOFT BM. PT WAS CLEANED, CHANGED, AND SHEETS CHANGED.
--- NOTE | 2019-03-25 14:48 | NUR ---
GOT A CALL FROM EVETTE, PT WILL BE TRANSFERRING TO [facility] TODAY FOR HIGHER LEVEL OF CARE, PASSENGER COACH DRIVER SCHEDULED FOR 1600, I LET KNOW CONCRETE BUILDINGS ASSEMBLER TO CHANGE THE PT FOR THE TRANSFER.
--- NOTE | 2019-03-25 14:56 | NUR ---
RECEIVED A CALL FROM [facility] DAVE SPOKE WITH STEPHANIE PT IS ACCEPTED AND CAN GO TO [address] VANE YAÑEZ THE ADDRESS IS [address] [place] [id number] # TO GIVE REPORT [phone] ARRANGED TRANSPORT WITH [facility] BLS TRIMMING OPERATOR TIME 4 PM NOTIFIED RYANN HALL
--- NOTE | 2019-03-25 15:13 | NUR ---
GAVE REPORT TO ISABEL NAGY, AT [facility], REGARDING PT'S TRANSFER.
[2019-03-25] MEDS ORDERED: INFLUENZA VACCINE QUAD 0.5 ML SYR IMVAC PRN (15:35)
--- NOTE | 2019-03-25 16:13 | NUR ---
FLU VACCINE ADMINISTERED L DELTOID
--- NOTE | 2019-03-25 16:30 | NUR ---
PT [place] BEEN [place] [facility] [place]. PT WAS TRANSFERRED VIA [facility]. IV SITE WAS MAINTAINED IN THE R HAND, 24 G. ALL PT'S BELONGINGS WERE SENT WITH HIM. PT LEFT IN STABLE CONDITION. FLU VACCINE WAS ADMINISTERED UPON DC.
--- NOTE | 2019-03-25 16:31 | NUR ---
PT BEING PICKED UP BY [facility] TO TRANSFER TO [facility] FOR HIGHER LEVEL OF CARE.
== END 2019-03-25 16:30 | disposition short-term general hospital (02) | DRG 720 ==
LOC: MED 06:08 → MTU 09:59
PROVIDERS: ADMIT General Practice; ATTEND General Practice
PROC: BF111ZZ Fluoroscopy of Biliary and Pancreatic Ducts using Low Osmolar Contrast (ICD-10-PCS; 2019-03-21)
PROC: 0F798DZ Dilation of Common Bile Duct with Intraluminal Device, Via Natural or Artificial Opening Endoscopic (ICD-10-PCS; principal; 2019-03-21 14:00)
PROC: 3E02340 Introduction of Influenza Vaccine into Muscle, Percutaneous Approach (ICD-10-PCS; 2019-03-25)
DX: A41.9 Sepsis, unspecified organism (principal); J96.01 Acute respiratory failure with hypoxia; J69.0 Pneumonitis due to inhalation of food and vomit; G80.9 Cerebral palsy, unspecified; R47.01 Aphasia; R65.20 Severe sepsis without septic shock; K59.09 Other constipation; F72 Severe intellectual disabilities; R31.9 Hematuria, unspecified; E87.6 Hypokalemia; K80.30 Calculus of bile duct with cholangitis, unspecified, without obstruction; K80.20 Calculus of gallbladder without cholecystitis without obstruction; F29 Unspecified psychosis not due to a substance or known physiological condition; Z79.899 Other long term (current) drug therapy; Z23 Encounter for immunization
CPT/HCPCS: 36415; 36600; 71045; 74018; 74330; 76705; 76770; 78445; 80048; 80053; 80076; 80305; 81001; 82140; 82247; 82248; 82803; 83036; 83605; 83690; 83735; 83880; 84100; 84443; 84484; 85025; 85610; 85730; 86704; 86706; 86708; 86709; 86803; 87040; 87081; 87086; 87340; 92526; 93005; 94640; 96361; 96365; 96366; 99285; C1727; C1758; C1769; J0456; J0696; J1610; J1644; J2060; J2270; J2543; J2704; J3370; J7030; J7060; J7620; Q0092; Q9967

== ENCOUNTER 2019-05-06 18:35 | Emergency (ER) | payer MEDICAID ==
[~2019-05-06] VITALS: Ht 152.4 cm; Wt 59.0 kg
[~2019-05-06 18:35] MED LIST changes: +DEXT1DRO4 OP; -NA P133N1 RC; +NA P133N16 RC; -POLY15SO48 OP
--- NOTE | 2019-05-06 18:41 | NUR ---
Patient ambulated to bed 3. RN evaluating patient at bedside.
[2019-05-06 18:42] VITALS: BP 126/78
--- NOTE | 2019-05-06 18:44 | NUR ---
58 Y/O MALE PRESENTING WITH C/C OF GENERALIZED WEAKNESS AND POOR APPETITE X1 DAY. PER CAREGIVER HE HAS HAD HX OF THIS COMPLAINT BEFORE IN PAST. PER CAREGIVER PT IS NONVERBAL. HX OF CEREBRAL PALSY, PSYCHOSIS. RX RESPIRADONE. DENIES N/V/D. PT CALM AND COOPERATIVE, FOLLOWS SIMPLE COMMANDS. Addendum: 05/06/19 at 1846 by YOVANNY CAREGIVER AT BEDSIDE. PT FROM [facility].
[2019-05-06] MEDS ORDERED: NACL 0.9% 1,000 ML IV SCH (18:50)
--- NOTE | 2019-05-06 19:05 | NUR ---
REPORT GIVEN TO MARICRUZ HALL
[2019-05-06 19:47] LABS: BASOPHILS % (AUTO) 0.7 % (0.0-2.0); EOSINOPHILS % (AUTO) 0.2 % (0.0-4.0); HEMATOCRIT 42.1 % (36-52); LYMPHOCYTES % (AUTO) 15.5 % (20.5-51.1); MEAN CORPUSCULAR HEMOGLOBIN 33 pg (27-31); MEAN CORPUSCULAR HGB CONC 33 g/dL (33-37); MEAN CORPUSCULAR VOLUME 99.7 fL (80-94); MONOCYTES # (AUTO) 0.9 K/uL (0.8-1.0); MONOCYTES % (AUTO) 13.3 % (1.7-9.3); NEUTROPHILS # (AUTO) 4.5 K/uL (1.8-7.7); NEUTROPHILS % (AUTO) 70.3 % (42.2-75.2); PLATELET COUNT (AUTO) 225 K/uL (140-450); RED BLOOD CELL COUNT(AUTO) 4.22 MIL/uL (4.20-6.10); RED CELL DISTRIBUTION WIDTH 13.4 % (11.6-13.7); WHITE BLOOD COUNT (AUTO) 6.4 K/uL (4.8-10.8)
[2019-05-06 20:00] LABS: ANION GAP 12.8 (8-16); CARBON DIOXIDE 28.2 mmol/L (21-32); CREATININE 0.6 mg/dL (0.7-1.3)
--- NOTE | 2019-05-06 20:02 | NUR ---
PER DR DELGADO WAITING TO COLLECT URINE AT THIS TIME.
[2019-05-06 20:06] LABS: ALBUMIN 3.4 g/dL (3.4-5.0); TOTAL BILIRUBIN 0.6 mg/dL (0.0-1.0)
[2019-05-06 20:53] LABS: APPEARANCE,URINE CLEAR (CLEAR); BILIRUBIN,URINE NEGATIVE (NEGATIVE); BLOOD, URINE NEGATIVE (NEGATIVE); COLOR,URINE YELLOW (YELLOW); LEUKOCYTE ESTERASE ,URINE NEGATIVE (NEGATIVE); NITRITE, URINE NEGATIVE (NEGATIVE); UGLUCOSE NEGATIVE (NEGATIVE)
[2019-05-06 22:22] VITALS: BP 152/88
--- NOTE | 2019-05-06 22:22 | NUR ---
Patient discharged with v/s stable. Written and verbal after care instructions given and explained. Patient verbalized understanding. Wheel Chair Assisted with by caregiver. All questions addressed prior to discharge. Advised to follow up with PMD. CAREGIVER WAS GIVEN LAB REPORT PER REQUEST. PT PAIN LEVEL WAS 0/10 PRIOR TO D/C
== END 2019-05-06 22:22 | disposition home or self-care (01) ==
LOC: MED 18:35
DX: E86.0 Dehydration (principal); R53.1 Weakness; Z79.899 Other long term (current) drug therapy
CPT/HCPCS: 36415; 71045; 80053; 81003; 82140; 82550; 83605; 83880; 84484; 85025; 87040; 87086; 87804; 93005; 96360; 99284

== ENCOUNTER 2019-07-22 16:42 | Emergency (ER) | payer MEDICAID ==
[~2019-07-22] VITALS: Ht 167.6 cm; Wt 65.8 kg
[2019-07-22 17:25] VITALS: BP 129/83
--- NOTE | 2019-07-22 17:44 | NUR ---
BROUGHT IN BY PHOTO LAB MANAGER FROM [facility] C/O NOTED PT WITH TEMP 99.3 TODAY AND BP HIGH SYSTOLIC 183; "PT NOT HIMSELF TODAY"--REFUSED TO STAND UP FOR CLOTHING CHANGE. "PT NORMALLY MORE UPBEAT". DRY COUGH AND CLEAR RUNNY NOSE X TODAY HX---MRCP, ATYPICAL PSYCHOSIS, CONSTIPATION, ANEMIA, NONVERBAL
--- NOTE | 2019-07-22 17:45 | NUR ---
PT EYE OPEN SPONTANEOUSLY, ALERT, NONVERBAL, FLACC 0
--- NOTE | 2019-07-22 17:48 | NUR ---
DR ROY EVALUATING PT @ BEDSIDE
--- NOTE | 2019-07-22 18:20 | NUR ---
Patient discharged with v/s stable. Written and verbal after care instructions given and explained. Patient alert, oriented and verbalized understanding of instructions. Wheel Chair Assisted with by caregiver. All questions addressed prior to discharge. ID band removed. Patient advised to follow up with PMD. Rx of ZOFRAN, TAMIFLU given. Patient educated on indication of medication including possible reaction and side effects. Opportunity to ask questions provided and answered.
[2019-07-22 18:25] VITALS: BP 122/80
== END 2019-07-22 18:25 | disposition home or self-care (01) ==
LOC: MED 16:42
DX: B34.9 Viral infection, unspecified (principal); G80.9 Cerebral palsy, unspecified; F29 Unspecified psychosis not due to a substance or known physiological condition; D64.9 Anemia, unspecified; F73 Profound intellectual disabilities; Z79.899 Other long term (current) drug therapy
CPT/HCPCS: 71045; 99283; Q0092

== ENCOUNTER 2020-05-03 19:30 | Emergency (ER) | payer MEDICAID ==
[~2020-05-03] VITALS: Ht 157.5 cm; Wt 66.2 kg
[2020-05-03 19:55] VITALS: BP 119/81
--- NOTE | 2020-05-03 19:58 | NUR ---
TO LOBBY A/W BED, VIA W/C
[2020-05-03 22:59] LABS: BASOPHILS % (AUTO) 0.4 % (0.0-2.0); EOSINOPHILS % (AUTO) 0.4 % (0.0-4.0); HEMATOCRIT 42.7 % (36-52); HEMOGLOBIN 14.4 g/dL (12.0-18.0); LYMPHOCYTES # (AUTO) 0.7 K/uL (2.0-11.5); LYMPHOCYTES % (AUTO) 10.9 % (20.5-51.1); MEAN CORPUSCULAR HEMOGLOBIN 33 pg (27-31); MEAN CORPUSCULAR HGB CONC 34 g/dL (33-37); MEAN CORPUSCULAR VOLUME 98.2 fL (80-94); MONOCYTES # (AUTO) 1.2 K/uL (0.8-1.0); MONOCYTES % (AUTO) 19.3 % (1.7-9.3); NEUTROPHILS # (AUTO) 4.1 K/uL (1.8-7.7); PLATELET COUNT (AUTO) 210 K/uL (140-450); RED BLOOD CELL COUNT(AUTO) 4.35 MIL/uL (4.20-6.10); RED CELL DISTRIBUTION WIDTH 13.3 % (11.6-13.7)
--- NOTE | 2020-05-03 23:15 | NUR ---
59 Y/O MALE BIB CAREGIVER FROM HOME C/O FEVER HTN AND TACHYCARDIA WITH UNSPECIFIED TIME FRAME PER CAREGIVER. PT DOES NOT APPEAR IN ANY DISTRESS. NO DIAPHORESIS NOTED. CAREGIVER DENIES N/V/DIARRHEA. PT NON-AMB. PT NON-VERBAL. PERRL. NO EDEMA NOTED. S1S2 NOTED. NO EXTRA HEART SOUNDS NOTED. PT IS LAYING IN GURNEY. CONNECTED TO THE TAX EVALUATOR. NO DISTRESS NOTED. PMH: CEREBRAL PALSY, ATYPICAL PSYCHOSIS, CONSTIPATION, ANEMIA, [id number], HEPATITIS NKA
--- NOTE | 2020-05-03 23:15 | NUR ---
PT TAKEN TO BED #3
[2020-05-03 23:23] LABS: ALBUMIN 3.9 g/dL (3.4-5.0); ANION GAP 11.2 (8-16); CARBON DIOXIDE 29.8 mmol/L (21-32); CREATININE 0.7 mg/dL (0.6-1.3); TOTAL BILIRUBIN 0.3 mg/dL (0.0-1.0)
--- NOTE | 2020-05-03 23:27 | NUR ---
ELGIN DARCI AT BEDSIDE
--- NOTE | 2020-05-03 23:45 | NUR ---
PERFORMED STRAIGHT CATHETERIZATION PER ERMD ORDER . PT TOLERATED WELL. 100ML OF CLEAN YELLOW URINE DRAINED INTO BAG.
--- NOTE | 2020-05-04 00:45 | NUR ---
URINE AND COVID SPECIMEN WALKED OVER TO LAB
--- NOTE | 2020-05-04 01:11 | NUR ---
XRAY AT BEDSIDE
--- NOTE | 2020-05-04 02:17 | NUR ---
ELGIN DARCI AT BEDSIDE
--- NOTE | 2020-05-04 02:39 | NUR ---
Dani zambranocarlee in ED - 05/04/20 at 0514 by ANYIEduardo SPOKE WITH POLA THE CAP CUTTER TO THE [facility]) THAT THE PT LIVES AT. SHE STATED HE CAN BE TRANSPORTED VIA AMBULANCE BACK TO THE [facility] SOMEONE WITH BE THERE TO RECEIVE HIM.
[2020-05-04 03:05] VITALS: BP 136/79
--- NOTE | 2020-05-04 03:05 | NUR ---
Patient discharged with v/s stable. Written and verbal after care instructions given and explained to CAREGIVER. Caregiver verbalized understanding of instructions. Wheel Chair Assisted by caregiver. All questions addressed prior to discharge. ID band removed. caregiver advised to follow up with PMD. Rx of Keflex given. caregiver educated on indication of medication including possible reaction and side effects. Opportunity to ask questions provided and answered.
== END 2020-05-04 03:05 | disposition home or self-care (01) ==
LOC: MED 19:30
DX: L03.311 Cellulitis of abdominal wall (principal); Z20.828 Contact with and (suspected) exposure to other viral communicable diseases; R03.0 Elevated blood-pressure reading, without diagnosis of hypertension; Z79.899 Other long term (current) drug therapy
CPT/HCPCS: 36415; 71045; 80053; 83605; 85025; 86140; 87040; 87086; 99283

== ENCOUNTER 2021-06-20 21:01 | Emergency (ER) | payer MEDICAID, OTHER ==
[~2021-06-20] VITALS: Ht 160 cm; Wt 68.0 kg
[~2021-06-20 21:01] MED LIST changes: -LISI-424 PO; +LISI5TAB24 PO
[2021-06-20 21:26] VITALS: BP 123/83
--- NOTE | 2021-06-20 21:26 | NUR ---
to tent via wheelchair
[2021-06-20] MEDS ORDERED: DOPPLER MC ONE (23:26)
[2021-06-20 23:46] LABS: BASOPHILS % (AUTO) 0.5 % (0.0-2.0); EOSINOPHILS % (AUTO) 0.4 % (0.0-4.0); HEMATOCRIT 38.9 % (36-52); HEMOGLOBIN 13.4 g/dL (12.0-18.0); LYMPHOCYTES # (AUTO) 0.9 K/uL (2.0-11.5); LYMPHOCYTES % (AUTO) 10.1 % (20.5-51.1); MEAN CORPUSCULAR HEMOGLOBIN 33 pg (27-31); MEAN CORPUSCULAR HGB CONC 34 g/dL (33-37); MEAN CORPUSCULAR VOLUME 96.5 fL (80-94); MONOCYTES # (AUTO) 1.2 K/uL (0.8-1.0); MONOCYTES % (AUTO) 13.4 % (1.7-9.3); NEUTROPHILS # (AUTO) 6.6 K/uL (1.8-7.7); NEUTROPHILS % (AUTO) 75.6 % (42.2-75.2); PLATELET COUNT (AUTO) 246 K/uL (140-450); RED BLOOD CELL COUNT(AUTO) 4.03 MIL/uL (4.20-6.10); RED CELL DISTRIBUTION WIDTH 12.9 % (11.6-13.7); WHITE BLOOD COUNT (AUTO) 8.7 K/uL (4.8-10.8)
[2021-06-21 00:10] LABS: ALBUMIN 3.6 g/dL (3.4-5.0); CARBON DIOXIDE 27.4 mmol/L (21-32); CREATININE 0.8 mg/dL (0.6-1.3); POTASSIUM 4.4 mmol/L (3.5-5.1); TOTAL BILIRUBIN 0.4 mg/dL (0.0-1.0)
--- NOTE | 2021-06-21 01:10 | NUR ---
patient in darlyn
--- NOTE | 2021-06-21 01:15 | NUR ---
# 14 FR Urinary catheter inserted utilizing sterile technique. Immediate return of 5 ml clearn, yellow, with foul smell urine noted. Urine sample collected and sent to lab. Pt tolerated procedure well.
--- NOTE | 2021-06-21 01:20 | NUR ---
patient repositioned, and provided pericare-- patient tolerated well. no notes of redness on buttocks or janey area.
[2021-06-21] MEDS ORDERED: ACETAMINOPHEN 160 MG/5 ML UDC PO ONE (01:35)
[2021-06-21] MEDS ORDERED: IBUPROFEN 600 MG TAB PO ONE (01:40)
[2021-06-21] MEDS ORDERED: LACT-103 PO (01:47)
[2021-06-21] MEDS ORDERED: MAGN1.7529 PO (01:50)
[2021-06-21] MEDS ORDERED: NACL 0.9% 1,000 ML IV ONE (01:55)
[2021-06-21] MEDS ORDERED: ACETAMINOPHEN 650 MG SUPP RC ONE (01:55)
--- NOTE | 2021-06-21 03:30 | NUR ---
SWABS FOR INFLUENZA, TIFFANY, SENT TO LAB
[2021-06-21 04:49] VITALS: BP 121/72
--- NOTE | 2021-06-21 04:49 | NUR ---
Patient discharged with v/s stable. Written and verbal after care instructions given and explained. Patient alert, oriented and verbalized understanding of instructions. Ambulatory with steady gait. All questions addressed prior to discharge. ID band removed. Patient advised to follow up with PMD. Rx of lactulose and magnesium citrate given. Patient educated on indication of medication including possible reaction and side effects. Opportunity to ask questions provided and answered.
--- NOTE | 2021-06-21 04:50 | NUR ---
IV removed, catheter intact and site benign. Applied folded 4x4 gauze and tape to stop bleeding.
== END 2021-06-21 04:49 | disposition home or self-care (01) ==
LOC: MED 21:01
DX: B34.9 Viral infection, unspecified (principal); K59.00 Constipation, unspecified; Z20.822 Contact with and (suspected) exposure to COVID-19
CPT/HCPCS: 36415; 74022; 80053; 81002; 83605; 85025; 87426; 87804; 96360; 99285; J7030; U0003

== ENCOUNTER 2021-09-16 19:43 | Emergency (ER) | payer MEDICAID, OTHER ==
[~2021-09-16] VITALS: Ht 160 cm; Wt 103.4 kg
[~2021-09-16 19:43] MED LIST changes: +LACT-103 PO; +MAGN1.7529 PO
[2021-09-16 19:49] VITALS: BP 127/70
--- NOTE | 2021-09-16 19:53 | NUR ---
Wheel chair to bed 6 with his cargiver.
--- NOTE | 2021-09-16 20:25 | NUR ---
MADALYN LOPEZ AT BEDSIDE EXAMINING PT.
--- NOTE | 2021-09-16 20:30 | NUR ---
60 Y/O MA;E BIB FACULTY FROM [facility], C/O FALL SINCE 1644. PATIENT PRESENTS TO ED WITH REDNESS TO LEFT LIP, EYEBROW, AND CHEEKBONE. PT IS NON VERBAL AND NON AMBULATORY. PRODUCT MANAGENT INTERN OF [facility] STATES WHILE PT WAS GETTING CHANGED, HE WAS STANDING AND HOLDING ONTO A BAR FOR SUPPORT; HE SLIPPED AND FELL FROM STANDING. NO KO, PERRL, NO OBVIOUS TRAUMA OR DEFORMITIES. FACULTY DENIES N/V/D; SKIN IS PINK/WARM/DRY; LUNGS CLEAR BL; HR EVEN AND REGULAR; FACULTY DENIES ANY FEVER, CP, SOB, OR COUGH AT THIS TIME; PT DOES NOT APPEAR IN ANY PAIN DUE TO BEHAVIOR AND FACES SCALE. VSS; PATIENT POSITIONED FOR COMFORT; HOB ELEVATED; BEDRAILS UP X2; BED DOWN. ER MD MADE AWARE OF PT STATUS. HX: PROFOUND INTELECTUAL DISABILITY, ANEMIA, CEREBRAL PALSY, ATYPICAL PSYCHOSIS, L CRYPT-ORCHIDISM NKA MEDS: LACTULOSE, MAG-CITRATE, ELIQUIS, LISINOPRIL, LORATADINE, RISPERIDONE
--- NOTE | 2021-09-16 20:56 | NUR ---
MANAGER ACTION AT BEDSIDE
--- NOTE | 2021-09-16 21:06 | NUR ---
PT TAKEN TO CT VIA WHEELCHAIR
[2021-09-16 21:07] LABS: BASOPHILS % (AUTO) 0.8 % (0.0-2.0); EOSINOPHILS # (AUTO) 0.1 K/uL (0-0.4); EOSINOPHILS % (AUTO) 2.2 % (0.0-4.0); HEMATOCRIT 38.9 % (36-52); HEMOGLOBIN 13.2 g/dL (12.0-18.0); LYMPHOCYTES # (AUTO) 1.5 K/uL (2.0-11.5); LYMPHOCYTES % (AUTO) 26.7 % (20.5-51.1); MEAN CORPUSCULAR HEMOGLOBIN 33 pg (27-31); MEAN CORPUSCULAR HGB CONC 34 g/dL (33-37); MONOCYTES # (AUTO) 0.7 K/uL (0.8-1.0); MONOCYTES % (AUTO) 13.3 % (1.7-9.3); NEUTROPHILS # (AUTO) 3.2 K/uL (1.8-7.7); PLATELET COUNT (AUTO) 254 K/uL (140-450); RED BLOOD CELL COUNT(AUTO) 4.01 MIL/uL (4.20-6.10); WHITE BLOOD COUNT (AUTO) 5.6 K/uL (4.8-10.8)
[2021-09-16 21:33] LABS: PROTHROMBIN TIME 10.5 secs (10.8-13.4)
[2021-09-16 21:41] LABS: ALBUMIN 3.5 g/dL (3.4-5.0); ANION GAP 10.1 (8-16); CARBON DIOXIDE 28.9 mmol/L (21-32); CREATININE 0.9 mg/dL (0.6-1.3); TOTAL BILIRUBIN 0.3 mg/dL (0.0-1.0)
[2021-09-16 23:02] VITALS: BP 138/87
--- NOTE | 2021-09-16 23:02 | NUR ---
Patient discharged with v/s stable. Written and verbal after care instructions given and explained to caregiver. Caregiver verbalized understanding. Wheel Chair Assisted with by caregiver. All questions addressed prior to discharge. Advised to follow up with PMD. VSS. Caregiver, Mayte Plascencia, signed on pt's behalf.
== END 2021-09-16 23:02 | disposition home or self-care (01) ==
LOC: MED 19:43
DX: S09.90XA Unspecified injury of head, initial encounter (principal); Z79.899 Other long term (current) drug therapy; Z98.890 Other specified postprocedural states; W19.XXXA Unspecified fall, initial encounter; Y93.89 Activity, other specified; Y92.89 Other specified places as the place of occurrence of the external cause; Y99.8 Other external cause status
CPT/HCPCS: 36415; 70450; 71045; 80053; 85025; 85610; 85730; 99285; Q0092

== ENCOUNTER 2023-01-21 09:44 | Emergency (ER) | payer MEDICAID ==
[~2023-01-21] VITALS: Ht 162.6 cm; Wt 58.5 kg
[~2023-01-21 09:44] MED LIST changes: -MAGN1.7529 PO; +MAGN296S70 PO; +[UNRECOGNIZED DRUG - CODE] PO; -[UNRECOGNIZED DRUG - CODE] PO
[2023-01-21 09:49] VITALS: BP 154/78; PULSE 96; RESP 22; TEMP 97.8; O2SAT 96
[2023-01-21 09:54] VITALS: BP 154/78; PULSE 96; RESP 22; TEMP 97.8
[2023-01-21 10:03] VITALS: O2SAT 96
[2023-01-21] MEDS ORDERED: KETOROLAC 60 MG/2 ML VIAL IM ONE (10:15)
[2023-01-21] MEDS ORDERED: IBUP-2213 PO (11:07)
[2023-01-21] MEDS ORDERED: PRED20TA5 PO (11:07)
[2023-01-21 11:13] LABS: FLU A ANTIGEN negative (NEGATIVE); FLU B ANTIGEN NEGATIVE (NEGATIVE)
[2023-01-21 11:41] VITALS: O2SAT 97
[2023-01-21] MEDS ORDERED: AZIT250T4 PO (11:56)
== END 2023-01-21 11:59 | disposition home or self-care (01) ==
LOC: MED 09:44
DX: J06.9 Acute upper respiratory infection, unspecified (principal); J18.9 Pneumonia, unspecified organism; R53.1 Weakness; Z20.822 Contact with and (suspected) exposure to COVID-19; Z79.899 Other long term (current) drug therapy; Z79.1 Long term (current) use of non-steroidal anti-inflammatories (NSAID)
CPT/HCPCS: 71045; 81002; 87426; 87804; 96372; 99284; J1885